=== PATIENT | female | born 1990 | race Hispanic/Latino ===

== ENCOUNTER 2023-05-03 06:37 | Emergency (ER) | payer OTHER ==
[2023-05-03] MEDS ORDERED: MAGNESIUM SULFATE 1 gm IVPB 1 GM/100 ML BAG IV ONE (07:22)
[2023-05-03] MEDS ORDERED: METOCLOPRAMIDE 10 MG/2mL INJ ONE (07:22)
[2023-05-03] MEDS ORDERED: ACETAMINOPHEN 500 MG TAB ONE (07:22)
[2023-05-03] MEDS ORDERED: NA CHLORIDE 0.9% 1,000 ML ONE (07:22)
[2023-05-03] MEDS ORDERED: DIPHENHYDRAMINE 50 MG/ML VIAL ONE (07:22)
[2023-05-03 07:35] LABS: SARS-CoV-2 Antigen Rapid Res Negative (Negative)
--- NOTE | 2023-05-03 08:10 | RAD REPORT ---
EXAM DESCRIPTION: CT - Head Brain Wo Cont - 05/03/2023 8:02 am CLINICAL HISTORY: HEADACHE Headache, drowsiness COMPARISON: No comparisons TECHNIQUE: All CT scans are performed using dose optimization technique as appropriate and may inclu de automated exposure control or mA/KV adjustment according to patient size. FINDINGS: No intracranial hemorrhage, hydrocephalus or extra-axial fluid collection.No areas of brai n edema or evidence of midline shift. The paranasal sinuses and mastoids are clear. The calvarium is intact. IMPRESSION: No acute intracranial abnormality.
[2023-05-03 08:30] LABS: Absolute Lymphocytes (CBC) 1.6 K/uL (0.7-4.9); Hematocrit 38.7 % (36.0-45.0); MCV 86.4 fL (80-100); MPV 9.8 fL (7.6-11.3); Platelets 251 thou/uL (152-406); RBC Red Blood Cell Count 4.48 M/uL (3.86-4.86)
[2023-05-03 08:44] LABS: Albumin 3.3 g/dL (3.4-5.0); Bilirubin Total 0.8 mg/dL (0.2-1.0); Potassium 3.7 mEq/L (3.5-5.1); Protein, Total 7.7 g/dL (6.4-8.2)
--- NOTE | 2023-05-03 09:22 | EDPHYS ---
Physician Documentation [facility] Name: Aliya Floyd Age: 32 yrs Sex: Female : 1990 Arrival Date: 05/03/2023 Time: 06:37 Bed 5 Private MD: ED Physician Abbe Spear HPI: 05/03 07:08 This 32 yrs old Female presents to ER via Ambulatory with complaints of Headache. rt 07:08 Patient presents to the ED with a headache for about a week. It is frontal in nature. rt Patient does report having a fever at home. States that she has had nausea no vomiting. She does report light sensitivity. She has had prior migraines in the past, states that these were similar but this 1 is lasting longer. Denies other acute complaints at this time, symptoms are moderate severity, aching nature, nonradiating, no other aggravating or alleviating factors.. 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 - Social history:: Smoking status: Patient denies any tobacco usage or history of. - Family history:: not pertinent. ROS: 07:08 Constitutional: Negative for fever, chills, and weight loss, Cardiovascular: Negative rt for chest pain, palpitations, and edema, Respiratory: Negative for shortness of breath, cough, wheezing, and pleuritic chest pain, MS/Extremity: Negative for injury and deformity, Skin: Negative for injury, rash, and discoloration, Psych: Negative for depression, anxiety, suicide ideation, homicidal ideation, and hallucinations. 07:08 Abdomen/GI: Positive for nausea, Negative for abdominal pain. 07:08 Neuro: Positive for headache, Negative for altered mental status. Exam: 07:08 Constitutional: This is a well developed, well nourished patient who is awake, alert, rt and in no acute distress. Head/Face: Normocephalic, atraumatic. Chest/axilla: Normal chest wall appearance and motion. Nontender with no deformity. No lesions are appreciated. Cardiovascular: Regular rate and rhythm with a normal S1 and S2. No gallops, murmurs, or rubs. Normal PMI, no JVD. No pulse deficits. Respiratory: Lungs have equal breath sounds bilaterally, clear to auscultation and percussion. No rales, rhonchi or wheezes noted. No increased work of breathing, no retractions or nasal flaring. Abdomen/GI: Soft, non-tender, with normal bowel sounds. No distension or tympany. No guarding or rebound. No evidence of tenderness throughout. Skin: Warm, dry with normal turgor. Normal color with no rashes, no lesions, and no evidence of cellulitis. MS/ Extremity: Pulses equal, no cyanosis. Neurovascular intact. Full, normal range of motion. Neuro: Awake and alert, GCS 15, oriented to person, place, time, and situation. Cranial nerves II-XII grossly intact. Motor strength 5/5 in all extremities. Sensory grossly intact. Cerebellar exam normal. Normal gait. Psych: Awake, alert, with orientation to person, place and time. Behavior, mood, and affect are within normal limits. Vital Signs: 06:57 BP 149 / 84; Pulse 68; Resp 18 S; Temp 100.4(O); Pulse Ox 96% on R/A; Weight 88.45 kg as6 (R); Height 5 ft. 4 in. (R); Pain 8/10; 09:00 BP 139 / 87; Pulse 71; Resp 16; Temp 99.1; Pulse Ox 100% on R/A; iw 06:57 Body Mass Index 33.47 (88.45 kg, 162.56 cm) as6 06:57 Pain Scale: Adult as6 MDM: 06:57 Patient medically screened. rt 09:39 Differential diagnosis: Migraine, viral syndrome, generalized headache, meningitis, rt encephalitis, intracranial hemorrhage. Data reviewed: vital signs, nurses notes. I considered the following discharge prescriptions or medication management in the emergency department Medications were administered in the Emergency Department. See MAR. Independent interpretation of the following test(s) in the Emergency Department CT Scan: My interpretation is No hemorrhage seen on interpretation of the CT scan images. Care significantly affected by the following chronic conditions: Hypertension. Counseling: I had a detailed discussion with the patient and/or guardian regarding the historical points, exam findings, and any diagnostic results supporting the discharge/admit diagnosis, lab results, radiology results, the need for outpatient follow up, Had a long discussion with the patient regarding possibility of meningitis given leukocytosis, description of symptoms. I informed the patient of the serious nature of meningitis, including the possibility of and disability. I offered the patient a lumbar puncture, after discussion of risks and benefits, she declines this as she is symptomatically much improved. She states that she wishes to go home. The patient was informed that she may return at any time if she has worsening of her condition or if she changes her mind regarding lumbar puncture.. Response to treatment: the patient's symptoms have markedly improved after treatment. 05/03 07:08 Order name: SARS RAPID; Complete Time: 07:35 rt 05/03 07:53 Order name: CBC with Diff; Complete Time: 08:49 rt 05/03 07:53 Order name: CMP; Complete Time: 08:49 rt 05/03 07:53 Order name: CT Head Brain wo Cont; Complete Time: 08:11 rt Administered Medications: 07:23 Drug: Acetaminophen PO 1000 mg Route: PO; [facility] 08:30 Follow up: Response: No adverse reaction iw 07:23 Drug: NS 0.9% IV 1000 ml Route: IV; Rate: 1 bolus; Site: right antecubital; 6 08:30 Follow up: IV Status: Completed infusion iw 07:23 Drug: metoCLOPramide IVP 10 mg Route: IVP; Site: right antecubital; 6 08:30 Follow up: Response: No adverse reaction iw 07:23 Drug: diphenhydrAMINE IVP 25 mg Route: IVP; Site: right antecubital; [facility] 08:30 Follow up: Response: No adverse reaction iw 07:23 Drug: Magnesium Sulfate IVPB 1 grams Route: IVPB; Infused Over: 2 hrs; Site: right kc6 antecubital; 08:30 Follow up: IV Status: Completed infusion iw Disposition Summary: 05/03/23 09:22 Discharge Ordered Location: Home rt Problem: new rt Symptoms: have improved rt Condition: Stable rt Diagnosis - Headache rt Followup: rt - With: Private Physician - When: 2 - 3 days - Reason: Followup: rt - With: Emergency Department - When: As needed - Reason: Further diagnostic work-up Discharge Instructions: - Discharge Summary Sheet rt - General Headache Without Cause rt - Bacterial Meningitis, Adult rt - Viral Meningitis, Adult rt Forms: - Work release form iw - Medication Reconciliation Form rt - Thank You Letter rt - Antibiotic Education rt - Prescription Opioid Use rt - Patient Portal Instructions rt - Leadership Thank You Letter rt Prescriptions: - Reglan 10 mg Oral Tablet - take 1 tablet by ORAL route every 6 hours As needed for headache; 15 tablet; rt Refills: 0, Product Selection Permitted Signatures: Dispatcher [employer] Toi Ortega RN RN as6 Lizeth Cueto RN RN kc6 Abbe Spear MD MD rt Williams, Irene RN iw
--- NOTE | 2023-05-03 09:22 | ER ---
Nurse's Notes [facility] Name: Aliya Floyd Age: 32 yrs Sex: Female : 1990 Arrival Date: 05/03/2023 Time: 06:37 Bed 5 Private MD: Diagnosis: Headache Presentation: 05/03 06:57 Chief complaint: Patient states: headache that started Sunday, pt was seen in Urgent as6 care on Sunday and was given pain medication with little to no relief. pt just left [place] and was told they couldn't do all the testing she might need. Coronavirus screen: At this time, the client does not indicate any symptoms associated with coronavirus-19. Ebola Screen: No symptoms or risks identified at this time. Initial Sepsis Screen: Does the patient meet any 2 criteria? No. Patient's initial sepsis screen is negative. Does the patient have a suspected source of infection? No. Patient's initial sepsis screen is negative. Risk Assessment: Do you want to hurt yourself or someone else? Patient reports no desire to harm self or others. Onset of symptoms was April 30, 2023. 06:57 Method Of Arrival: Ambulatory as6 06:57 Acuity: GERSON 3 as6 Triage Assessment: 07:02 General: Appears uncomfortable, Behavior is calm, cooperative. Pain: Complains of pain as6 in head Quality of pain is described as aching. Neuro: Reports headache. GI: Reports nausea. 07:30 Headache History: The patient has had previous headaches and this one is more severe iw than previous episodes. Pain: Pain Also complains of photophobia. 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 - Social history:: Smoking status: Patient denies any tobacco usage or history of. - Family history:: not pertinent. Screenin:43 [facility] ED Fall Risk Assessment (Adult) Score/Fall Risk Level 0 - 2 = Low Risk. Abuse iw screen: Denies threats or abuse. Denies injuries from another. Nutritional screening: No deficits noted. Tuberculosis screening: No symptoms or risk factors identified. Assessment: 07:42 General: Appears in no apparent distress. Behavior is calm, cooperative. Pain: iw Complains of pain in head. Neuro: Level of Consciousness is awake, alert, obeys commands, Oriented to person, place, time, situation, Moves all extremities. Full function Reports headache. Cardiovascular: Patient's skin is warm and dry. Respiratory: Respiratory effort is even, unlabored, Respiratory pattern is regular, symmetrical. Derm: Skin is intact, is healthy with good turgor. Musculoskeletal: Range of motion: intact in all extremities. 09:00 Reassessment: Patient appears in no apparent distress at this time. Patient and/or iw family updated on plan of care and expected duration. Pain level reassessed. Patient is alert, oriented x 3, equal unlabored respirations, skin warm/dry/pink. Vital Signs: 06:57 BP 149 / 84; Pulse 68; Resp 18 S; Temp 100.4(O); Pulse Ox 96% on R/A; Weight 88.45 kg as6 (R); Height 5 ft. 4 in. (R); Pain 8/10; 09:00 BP 139 / 87; Pulse 71; Resp 16; Temp 99.1; Pulse Ox 100% on R/A; iw 06:57 Body Mass Index 33.47 (88.45 kg, 162.56 cm) as6 06:57 Pain Scale: Adult as6 ED Course: 06:48 Patient arrived in ED. ag3 06:57 Abbe Spear MD is Attending Physician. rt 07:00 Lucrecia Harmon, RN is Primary Nurse. iw 07:01 Triage completed. as6 07:04 Arm band placed on. as6 07:16 Inserted saline lock: 22 gauge in right antecubital area, using aseptic technique. iw 07:16 SARS RAPID Sent. iw 07:43 Patient has correct armband on for positive identification. iw 08:04 CT Head Brain wo Cont In Process Unspecified. EDMS 08:20 CBC with Diff Sent. iw 08:20 CMP Sent. iw 09:30 Provided Education on: Lumbar Puncture, after speaking it over with mother, pt decided iw she does not consent to LP, verbalizes understanding of risks involved with forgoing procedure . 09:54 No provider procedures requiring assistance completed. IV discontinued, intact, iw bleeding controlled, No redness/swelling at site. Pressure dressing applied. Administered Medications: 07:23 Drug: Acetaminophen PO 1000 mg Route: PO; kc6 08:30 Follow up: Response: No adverse reaction iw 07: Drug: NS 0.9% IV 1000 ml Route: IV; Rate: 1 bolus; Site: right antecubital; kc6 08:30 Follow up: IV Status: Completed infusion iw 07: Drug: metoCLOPramide IVP 10 mg Route: IVP; Site: right antecubital; kc6 08:30 Follow up: Response: No adverse reaction iw 07: Drug: diphenhydrAMINE IVP 25 mg Route: IVP; Site: right antecubital; kc6 08:30 Follow up: Response: No adverse reaction iw 07: Drug: Magnesium Sulfate IVPB 1 grams Route: IVPB; Infused Over: 2 hrs; Site: right kc6 antecubital; 08:30 Follow up: IV Status: Completed infusion iw Medication: 07:45 VIS not applicable for this client. iw Outcome: 09:22 Discharge ordered by . rt 09:55 Discharged to home ambulatory, with family. iw 09:55 Condition: good 09:55 Discharge instructions given to patient, family, Instructed on discharge instructions, follow up and referral plans. medication usage, Demonstrated understanding of instructions, follow-up care, medications, Prescriptions given X 1. 09:56 Patient left the ED. iw Signatures: Dispatcher [employer] Lucrecia Hernandez RN RN iw Gomez, Alice ag3 Toi Moore RN RN as6 Lizeth Cueto RN RN kc6 Abbe Spear MD MD rt
[2023-05-03 10:11] VITALS: BP 149/84; TEMP 100.4; O2SAT 96
== END 2023-05-03 09:56 | disposition home or self-care (01) ==
LOC: ER 06:37
DX: R51.9 Headache, unspecified (principal); R11.0 Nausea; I10 Essential (primary) hypertension; Z20.822 Contact with and (suspected) exposure to COVID-19
CPT/HCPCS: 96365; 85025; 36415; 80053; 70450; 96375; 99284; 87811; J3475; J2765; J1200; J7030

== ENCOUNTER 2023-05-04 14:15 | Inpatient (IN) | payer OTHER ==
--- OUTSIDE RECORDS SUMMARY | 2023-05-04 14:19 | XMS REPORT | Continuity of Care Document ---
:1990 Author Organization [facility] t Address [address] [place] [address] Care Team Providers Name Role Phone Felice Pardo MD Primary Care Physician Keaton_R_LAN_DO Attending Clinician Unavailable ZACH CLEMENTS Attending Clinician Unavailable WILLIE HO Attending Clinician Unavailable ALFREDO PORTILLO Attending Clinician Unavailable CRISELDA DIAMOND Attending Clinician Unavailable Keaton_Petr_LAN_ Admitting Clinician Unavailable Payers Payer Name Policy Type Policy Number Effective Date Expiration Date [place] [facility] P [id number] [facility] [id number] [facility] CHOICE PLUS [id number] 2021 00:00:00 COMMERCIAL GENERIC [id number] 2021 OON 00:00:00 Problems This patient has no known problems. Allergies, Adverse Reactions, Alerts Allergy Allergy Status Severity Reaction(s) Onset Inactive Treating Comm ents Source Name Type Date Date Clinician NO KNOWN Allergy Active [facility] Mold Allergy Active Itching, [place] to Respiratory Famil y substanc distress Practi c e e CAT Allergy Active Itching [place] DANDER to Family substanc Practic e e Dog Allergy Active Itching [place] Dander to Family substanc Practic e e House Allergy Active Itching, [place] Dust to Respiratory Famil y substanc distress Practi c e e Family History Family Member Diagnosis Comments Start Date Stop Date Source Natural father Heart disease [facility] Natural father Hypertension [facility] Natural mother Cancer [facility] Natural mother Arthritis [facility] Natural brother Asthma [facility] Natural sister Asthma [facility] Natural sister Hyperlipidemia [facility] Natural sister Hypertension [facility] Social History Social Habit Start Date Stop Date Quantity Comments Source Gender identity Neil Guzman alth Sexual orientation [facility] Alcohol intake 2022-12-09 2022-12-[address] [facility] (finding) History of Social 2022-01-23 2022-01-[address] function 00:00:00 00:00:00 Hospital Alcohol Comment 2021-10-24 2021-10-24 rarely [facility] 00:[facility]:00 00:00:00 Hospital Tobacco use and 2021-10-24 2021-10-24 Smokeless [facility] exposure 00:00:00 00:00:00 tobacco non-user Hospital Sex Assigned At [address] [facility] 00:00:00 [facility]:00:00 [facility] Center Smoking Status Start Date Stop Date Source Never Smoker [place] [facility] P vic Medications Ordered Filled Start Stop Current Ordering Indication Dosage Frequency Signature Comments Components Source Medication Medication Date Date Medication? Clinician (SIG) Name Name vilazodone Yes 40mg QD Take 40 mg M ethodi (Viibryd) 5-[address] 40 mg 13:35: daily. [facility]ospita tablet 43 l NIFEdipine Yes 30mg QD Take 30 mg M ethodi ER 5-[address] (PROCARDIA- 13:35: daily. Hosp eduardo XL) 30 MG 43 l 24 hr tablet budesonide- Yes 2{puff} Q.5D Inhale 2 [facility] formoteroL 5-[address] (SYMBICORT) 13:35: (two) Hospi ta 160-4.5 43 times a l mcg/actuati day. on inhaler topiramate Yes 25mg QD Take 1 Metho di (TOPAMAX) 5-[address] 25 MG 00:00: (25 mg Hospita capsule 00 total) by l mouth nightly. clindamycin Yes Folliculiti Apply to Neil (CLEOCIN-T) 11-08 s affected Heal th 1 % lotion 00:00: areas with 00 inflamed hair follicles in the armpits twice daily until clear. ketoconazol Yes Seborrheic Lather Neil daily (NIZORAL) 11-08 dermatitis onto He alth 2 % shampoo 00:00: scalp, let 00 sit for 5-10 mins, then rinse. Repeat 2-3 times a week. multivitami Yes 1{tbl} QD Take [address] [facility] per 3-25 tablet by [facility] tablet 09:33: [facility] 12 daily. [place] multivitami Yes 1{tbl} QD Take [address] [facility] per 3-25 tablet by [facility] tablet 09:33: mouth [facility] 12 daily. [place] OneTouch OneTouch No OneTouch Clay moustapha Verio test Verio test Verio test Family strips USE strips USE strips USE Practic DIRECTED DIRECTED e ONCE DAILY ONCE DAILY DIRECTED IN THE IN THE ONCE DAILY MORNING MORNING IN THE MORNING propranolol propranolol No propranolo [place] 10 mg 10 mg l 10 mg Family tablet TAKE tablet TAKE tablet Practic 1 TABLET BY 1 TABLET BY TAKE 1 e MOUTH TWICE MOUTH TWICE TABLET BY DAILY DAILY MOUTH NEEDED NEEDED TWICE DAILY NEEDED Symbicort Symbicort No Symbicort [place] 160 mcg-4.5 160 mcg-4.5 160 F amily mcg/actuati mcg/actuati mcg-4.5 Practic on HFA on HFA mcg/actuat e aerosol aerosol ion HFA inhaler inhaler aerosol INHALE 2 INHALE 2 inhaler PUFFS BY PUFFS BY INHALE 2 MOUTH TWICE MOUTH TWICE PUFFS BY DAILY WITH DAILY WITH MOUTH MEALS FOR 3 MEALS FOR 3 TWICE DAYS DAYS DAILY WITH MEALS FOR 3 DAYS albuterol albuterol No albuterol [place] sulfate HFA sulfate HFA sulfate Family 90 90 HFA 90 Practic mcg/actuati mcg/actuati mcg/actuat e on aerosol on aerosol ion inhaler inhaler aerosol INHALE 2 INHALE 2 inhaler PUFFS BY PUFFS BY INHALE 2 MOUTH EVERY MOUTH EVERY PUFFS BY 6 HOURS 6 HOURS MOUTH NEEDED NEEDED EVERY 6 HOURS NEEDED amlodipine amlodipine No amlodipine [place] 10 10 10 Family mg-benazepr mg-benazepr mg-benazep Practic il 20 mg il 20 mg ril 20 mg e capsule capsule capsule TAKE 1 TAKE 1 TAKE 1 CAPSULE BY CAPSULE BY CAPSULE BY MOUTH EVERY MOUTH EVERY MOUTH DAY IN THE DAY IN THE EVERY DAY MORNING MORNING IN THE MORNING amoxicillin amoxicillin No 1 Q12H amoxicilli [facility] [phone] Family mg-potassiu mg-potassiu mg-potassi Practic m m um e clavulanate clavulanate clavulanat 125 mg 125 mg e 125 mg tablet Take tablet Take tablet 1 tablet 1 tablet Take 1 every 12 every 12 tablet hours by hours by every 12 oral route oral route hours by with meals with meals oral route for 7 days. for 7 days. with meals for 7 days. montelukast montelukast [facility] 10 mg 10 mg t 10 mg Family tablet TAKE tablet TAKE tablet Practic 1 TABLET BY 1 TABLET BY TAKE 1 e MOUTH EVERY MOUTH EVERY TABLET BY DAY AT DAY AT MOUTH BEDTIME BEDTIME EVERY DAY AT BEDTIME OneTouch OneTouch No OneTouch Clay moustapha Delica Plus Delica Plus Delica Family Lancet 33 Lancet 33 Plus Pract ic gauge USE gauge USE Lancet 33 e DIRECTED DIRECTED gauge USE TO CHECK TO CHECK BLOOD BLOOD DIRECTED SUGARS ONCE SUGARS ONCE TO CHECK DAILY DAILY BLOOD SUGARS ONCE DAILY OneTouch OneTouch No OneTouch Clay moustapha Verio Verio Verio Family Reflect Reflect Reflect Practi c Meter Meter Meter e DIRECTED TO DIRECTED TO DIRECTED CHECK BLOOD CHECK BLOOD TO CHECK SUGARS SUGARS BLOOD DAILY DAILY SUGARS DAILY OneTouch OneTouch No OneTouch Clay moustapha Verio test Verio test Verio test Family strips USE strips USE strips USE Practic DIRECTED DIRECTED e ONCE DAILY ONCE DAILY DIRECTED IN THE IN THE ONCE DAILY MORNING MORNING IN THE MORNING propranolol propranolol No propranolo [facility] 10 mg 10 mg l 10 mg Family tablet TAKE tablet TAKE tablet Practic 1 TABLET BY 1 TABLET BY TAKE 1 e MOUTH TWICE MOUTH TWICE TABLET BY DAILY DAILY MOUTH NEEDED NEEDED TWICE DAILY NEEDED rosuvastati rosuvastati No 1 Q1D rosuvastat [facility] n 20 mg n 20 mg in 20 mg Famil y tablet Take tablet Take tablet Practic 1 tablet 1 tablet Take 1 e every day every day tablet by oral by oral every day route at route at by oral bedtime for bedtime for route at 30 days. 30 days. bedtime for 30 days. Symbicort Symbicort No Symbicort [facility] 160 mcg-4.5 160 mcg-4.5 160 F amily mcg/actuati mcg/actuati mcg-4.5 Practic on HFA on HFA mcg/actuat e aerosol aerosol ion HFA inhaler inhaler aerosol INHALE 2 INHALE 2 inhaler PUFFS BY PUFFS BY INHALE 2 MOUTH TWICE MOUTH TWICE PUFFS BY DAILY WITH DAILY WITH MOUTH MEALS FOR 3 MEALS FOR 3 TWICE DAYS DAYS DAILY WITH MEALS FOR 3 DAYS albuterol albuterol No albuterol [place] sulfate HFA sulfate HFA sulfate Family 90 90 HFA 90 Practic mcg/actuati mcg/actuati mcg/actuat e on aerosol on aerosol ion inhaler inhaler aerosol INHALE 2 INHALE 2 inhaler PUFFS BY PUFFS BY INHALE 2 MOUTH EVERY MOUTH EVERY PUFFS BY 6 HOURS 6 HOURS MOUTH NEEDED NEEDED EVERY 6 HOURS NEEDED amlodipine amlodipine No amlodipine [facility] 10 10 10 Family mg-benazepr mg-benazepr mg-benazep Practic il 20 mg il 20 mg ril 20 mg e capsule capsule capsule TAKE 1 TAKE 1 TAKE 1 CAPSULE BY CAPSULE BY CAPSULE BY MOUTH EVERY MOUTH EVERY MOUTH DAY IN THE DAY IN THE EVERY DAY MORNING MORNING IN THE MORNING amoxicillin amoxicillin No 1 Q12H amoxicilli [facility] [phone] n 875 Family mg-potassiu mg-potassiu mg-potassi Practic m m um e clavulanate clavulanate clavulanat 125 mg 125 mg e 125 mg tablet Take tablet Take tablet 1 tablet 1 tablet Take 1 every 12 every 12 tablet hours by hours by every 12 oral route oral route hours by with meals with meals oral route for 7 days. for 7 days. with meals for 7 days. montelukast montelukast [facility] 10 mg 10 mg t 10 mg Family tablet TAKE tablet TAKE tablet Practic 1 TABLET BY 1 TABLET BY TAKE 1 e MOUTH EVERY MOUTH EVERY TABLET BY DAY AT DAY AT MOUTH BEDTIME BEDTIME EVERY DAY AT BEDTIME OneTouch OneTouch No OneTouch Clay moustapha Delica Plus Delica Plus [facility] Family Lancet 33 Lancet 33 Plus Pract ic gauge USE gauge USE Lancet 33 e DIRECTED DIRECTED gauge USE TO CHECK TO CHECK BLOOD BLOOD DIRECTED SUGARS ONCE SUGARS ONCE TO CHECK DAILY DAILY BLOOD SUGARS ONCE DAILY OneTouch OneTouch No OneTouch Clay moustapha Verio Verio Verio Family Reflect Reflect Reflect Practi c Meter Meter Meter e DIRECTED TO DIRECTED TO DIRECTED CHECK BLOOD CHECK BLOOD TO CHECK SUGARS SUGARS BLOOD DAILY DAILY SUGARS DAILY OneTouch OneTouch No OneTouch Clay moustapha Verio test Verio test Verio test Family strips USE strips USE strips USE Practic DIRECTED DIRECTED e ONCE DAILY ONCE DAILY DIRECTED IN THE IN THE ONCE DAILY MORNING MORNING IN THE MORNING propranolol propranolol No propranolo [place] 10 mg 10 mg l 10 mg Family tablet TAKE tablet TAKE tablet Practic 1 TABLET BY 1 TABLET BY TAKE 1 e MOUTH TWICE MOUTH TWICE TABLET BY DAILY DAILY MOUTH NEEDED NEEDED TWICE DAILY NEEDED rosuvastati rosuvastati No 1 Q1D rosuvastat [facility] n 20 mg n 20 mg in 20 mg Famil y tablet Take tablet Take tablet Practic 1 tablet 1 tablet Take 1 e every day every day tablet by oral by oral every day route at route at by oral bedtime for bedtime for route at 30 days. 30 days. bedtime for 30 days. Symbicort Symbicort No Symbicort [place] 160 mcg-4.5 160 mcg-4.5 160 F amily mcg/actuati mcg/actuati mcg-4.5 Practic on HFA on HFA mcg/actuat e aerosol aerosol ion HFA inhaler inhaler aerosol INHALE 2 INHALE 2 inhaler PUFFS BY PUFFS BY INHALE 2 MOUTH TWICE MOUTH TWICE PUFFS BY DAILY WITH DAILY WITH MOUTH MEALS FOR 3 MEALS FOR 3 TWICE DAYS DAYS DAILY WITH MEALS FOR 3 DAYS albuterol albuterol No 2puff(s Q6H albuterol [place] sulfate HFA sulfate HFA ) sulfate Family 90 90 HFA 90 Practic mcg/actuati mcg/actuati mcg/actuat e on aerosol on aerosol ion inhaler inhaler aerosol Inhale 2 Inhale 2 inhaler puffs every puffs every Inhale 2 6 hours by 6 hours by puffs inhalation inhalation every 6 route as route as hours by needed for needed for inhalation 30 days. 30 days. route as needed for 30 days. Lotrel 10 Lotrel 10 No 1capsul Q1D Lotrel 10 [place] mg-20 mg mg-20 mg e(s) mg-20 mg Fam hernan capsule capsule capsule Practi c Take 1 Take 1 Take 1 e capsule capsule capsule every day every day every day by oral by oral by oral route in route in route in the morning the morning the for 30 for 30 morning days. days. for 30 days. montelukast montelukast No 1 Q1D [place] [facility] 10 mg 10 mg t 10 mg Family tablet Take tablet Take tablet Practic 1 tablet 1 tablet Take 1 e every day every day tablet by oral by oral every day route at route at by oral bedtime for bedtime for route at 30 days. 30 days. bedtime for 30 days. propranolol propranolol No 1 BID propranolo [facility] 10 mg 10 mg l 10 mg Family tablet Take tablet Take tablet Practic 1 tablet 1 tablet Take 1 e twice a day twice a day tablet by oral by oral twice a route as route as day by needed for needed for oral route 30 days. 30 days. as needed for 30 days. Symbicort Symbicort No 2puff(s BID Symbicort [facility] 160 mcg-4.5 160 mcg-4.5 ) 160 F amily mcg/actuati mcg/actuati mcg-4.5 Practic on HFA on HFA mcg/actuat e aerosol aerosol ion HFA inhaler inhaler aerosol Inhale 2 Inhale 2 inhaler puffs twice puffs twice Inhale 2 a day by a day by puffs inhalation inhalation twice a route with route with day by meals for 3 meals for 3 inhalation days. days. route with meals for 3 days. albuterol albuterol No albuterol [facility] sulfate HFA sulfate HFA sulfate Family 90 90 HFA 90 Practic mcg/actuati mcg/actuati mcg/actuat e on aerosol on aerosol ion inhaler inhaler aerosol INHALE 2 INHALE 2 inhaler PUFFS BY PUFFS BY INHALE 2 MOUTH EVERY MOUTH EVERY PUFFS BY 6 HOURS 6 HOURS MOUTH NEEDED NEEDED EVERY 6 HOURS NEEDED amlodipine amlodipine No amlodipine [facility] 10 10 10 Family mg-benazepr mg-benazepr mg-benazep Practic il 20 mg il 20 mg ril 20 mg e capsule capsule capsule TAKE 1 TAKE 1 TAKE 1 CAPSULE BY CAPSULE BY CAPSULE BY MOUTH EVERY MOUTH EVERY MOUTH DAY IN THE DAY IN THE EVERY DAY MORNING MORNING IN THE MORNING montelukast montelukast No karissa [facility] 10 mg 10 mg t 10 mg Family tablet TAKE tablet TAKE tablet Practic 1 TABLET BY 1 TABLET BY TAKE 1 e MOUTH EVERY MOUTH EVERY TABLET BY DAY AT DAY AT MOUTH BEDTIME BEDTIME EVERY DAY AT BEDTIME OneTouch OneTouch No 1strip( Q1D OneTouch [facility] Verio test Verio test s) Verio test Family strips Take strips Take strips Practic 1 strip 1 strip Take 1 e every day every day strip by miscell. by miscell. every day route in route in by the morning the morning miscell. for 90 for 90 route in days. days. the morning for 90 days. [facility] l 10 mg Family tablet TAKE tablet TAKE tablet Practic 1 TABLET BY 1 TABLET BY TAKE 1 e MOUTH TWICE MOUTH TWICE TABLET BY DAILY DAILY MOUTH NEEDED NEEDED TWICE DAILY NEEDED Symbicort Symbicort No Symbicort [facility] 160 mcg-4.5 160 mcg-4.5 160 F amily mcg/actuati mcg/actuati mcg-4.5 Practic on HFA on HFA mcg/actuat e aerosol aerosol ion HFA inhaler inhaler aerosol INHALE 2 INHALE 2 inhaler PUFFS BY PUFFS BY INHALE 2 MOUTH TWICE MOUTH TWICE PUFFS BY DAILY WITH DAILY WITH MOUTH MEALS FOR 3 MEALS FOR 3 TWICE DAYS DAYS DAILY WITH MEALS FOR 3 DAYS albuterol albuterol No albuterol [facility] sulfate HFA sulfate HFA sulfate Family 90 90 HFA 90 Practic mcg/actuati mcg/actuati mcg/actuat e on aerosol on aerosol ion inhaler inhaler aerosol INHALE 2 INHALE 2 inhaler PUFFS BY PUFFS BY INHALE 2 MOUTH EVERY MOUTH EVERY PUFFS BY 6 HOURS 6 HOURS MOUTH NEEDED NEEDED EVERY 6 HOURS NEEDED amlodipine amlodipine No amlodipine [facility] 10 10 10 Family mg-benazepr mg-benazepr mg-benazep Practic il 20 mg il 20 mg ril 20 mg e capsule capsule capsule TAKE 1 TAKE 1 TAKE 1 CAPSULE BY CAPSULE BY CAPSULE BY MOUTH EVERY MOUTH EVERY MOUTH DAY IN THE DAY IN THE EVERY DAY MORNING MORNING IN THE MORNING montelukast montelukast No [facility] 10 mg 10 mg t 10 mg Family tablet TAKE tablet TAKE tablet Practic 1 TABLET BY 1 TABLET BY TAKE 1 e MOUTH EVERY MOUTH EVERY TABLET BY DAY AT DAY AT MOUTH BEDTIME BEDTIME EVERY DAY AT BEDTIME OneTouch OneTouch No OneTouch Clay moustapha Delica Plus Delica Plus Delica Family Lancet 33 Lancet 33 Plus Pract ic gauge USE gauge USE Lancet 33 e DIRECTED DIRECTED gauge USE TO CHECK TO CHECK BLOOD BLOOD DIRECTED SUGARS ONCE SUGARS ONCE TO CHECK DAILY DAILY BLOOD SUGARS ONCE DAILY OneTouch OneTouch No OneTouch Clay moustapha Verio Verio Verio Family Reflect Reflect Reflect Practi c Meter Meter Meter e DIRECTED TO DIRECTED TO DIRECTED CHECK BLOOD CHECK BLOOD TO CHECK SUGARS SUGARS BLOOD DAILY DAILY SUGARS DAILY Immunizations Ordered Immunization Filled Immunization Date Status Commen ts Source Name Name SARS-COV-2 2021-07-21 Completed [facility] (COVID-19) Vaccine, 00:00:00 Hospi migdalia Unspecified COVID-19, mRNA, COVID-19, mRNA, 2021-07-14 Completed Vill age Family LNP-S, PF, 100 LNP-S, PF, 100 00:00:00 Practi ce mcg/0.5 mL dose mcg/0.5 mL dose (Moderna) (Moderna) influenza, influenza, 2021-07-14 Completed [facility] Family unspecified unspecified 00:00:00 Practice formulation formulation COVID-19, mRNA, COVID-19, mRNA, 2021-07-14 Completed [facility] age Family LNP-S, PF, 100 LNP-S, PF, 100 00:00:00 Practi ce mcg/0.5 mL dose mcg/0.5 mL dose (Moderna) (Moderna) influenza, influenza, 2021-07-14 Completed [facility] unspecified unspecified 00:00:00 Practice formulation formulation COVID-19, mRNA, COVID-19, mRNA, 2021-07-14 Completed [facility] age Family LNP-S, PF, 100 LNP-S, PF, 100 00:00:00 Practi ce mcg/0.5 mL dose mcg/0.5 mL dose (Moderna) (Moderna) influenza, influenza, 2021-07-14 Completed [facility] unspecified unspecified 00:00:00 Practice formulation formulation COVID-19, mRNA, COVID-19, mRNA, 2021-07-14 Completed [facility] age Family LNP-S, PF, 100 LNP-S, PF, 100 00:00:00 Practi ce mcg/0.5 mL dose mcg/0.5 mL dose (Moderna) (Moderna) influenza, influenza, 2021-07-14 Completed [facility] unspecified unspecified 00:00:00 Practice formulation formulation COVID-19, mRNA, COVID-19, mRNA, 2021-07-14 Completed [facility] Family LNP-S, PF, 100 LNP-S, PF, 100 00:00:00 Practi ce mcg/0.5 mL dose mcg/0.5 mL dose (Moderna) (Moderna) influenza, influenza, 2021-07-14 Completed [facility] unspecified unspecified 00:00:00 Practice formulation formulation COVID-19, mRNA, COVID-19, mRNA, 2021-01-16 Completed [facility] Family LNP-S, PF, 100 LNP-S, PF, 100 00:00:00 Practi ce mcg/0.5 mL dose mcg/0.5 mL dose (Moderna) (Moderna) COVID-19, mRNA, COVID-19, mRNA, 2021-01-16 Completed [facility] Family LNP-S, PF, 100 LNP-S, PF, 100 00:00:00 Practi ce mcg/0.5 mL dose mcg/0.5 mL dose (Moderna) (Moderna) COVID-19, mRNA, COVID-19, mRNA, 2021-01-16 Completed [facility] Family LNP-S, PF, 100 LNP-S, PF, 100 00:00:00 Practi ce mcg/0.5 mL dose mcg/0.5 mL dose (Moderna) (Moderna) COVID-19, mRNA, COVID-19, mRNA, 2021-01-16 Completed [facility] Family LNP-S, PF, 100 LNP-S, PF, 100 00:00:00 Practi ce mcg/0.5 mL dose mcg/0.5 mL dose (Moderna) (Moderna) COVID-19, mRNA, COVID-19, mRNA, 2021-01-16 Completed [facility] Family LNP-S, PF, 100 LNP-S, PF, 100 00:00:00 Practi ce mcg/0.5 mL dose mcg/0.5 mL dose (Moderna) (Moderna) SARS-COV-2 2021-01-15 Completed [facility] (COVID-19) Vaccine, 00:00:00 Hospi migdalia Unspecified SARS-COV-2 2020-12-18 Completed [facility] (COVID-19) Vaccine, 00:00:00 Hospi migdalia Unspecified COVID-19, mRNA, COVID-19, mRNA, 2020-11-12 Completed [facility] Family LNP-S, PF, 100 LNP-S, PF, 100 00:00:00 Practi ce mcg/0.5 mL dose mcg/0.5 mL dose (Moderna) (Moderna) COVID-19, mRNA, COVID-19, mRNA, 2020-11-12 Completed [facility] LNP-S, PF, 100 LNP-S, PF, 100 00:00:00 Practi ce mcg/0.5 mL dose mcg/0.5 mL dose (Moderna) (Moderna) COVID-19, mRNA, COVID-19, mRNA, 2020-11-12 Completed [facility] LNP-S, PF, 100 LNP-S, PF, 100 00:00:00 Practi ce mcg/0.5 mL dose mcg/0.5 mL dose (Moderna) (Moderna) COVID-19, mRNA, COVID-19, mRNA, 2020-11-12 Completed [facility] LNP-S, PF, 100 LNP-S, PF, 100 00:00:00 Practi ce mcg/0.5 mL dose mcg/0.5 mL dose (Moderna) (Moderna) COVID-19, mRNA, COVID-19, mRNA, 2020-11-12 Completed [facility] LNP-S, PF, 100 LNP-S, PF, 100 00:00:00 Practi ce mcg/0.5 mL dose mcg/0.5 mL dose (Moderna) (Moderna) Hep B, unspecified Hep B, unspecified 2003-04-13 Completed [facility] formulation formulation 00:00:00 Practice Hep B, unspecified Hep B, unspecified 2003-04-13 Completed [facility] formulation formulation 00:00:00 Practice Hep B, unspecified Hep B, unspecified 2003-04-13 Completed [facility] formulation formulation 00:00:00 Practice Hep B, unspecified Hep B, unspecified 2003-04-13 Completed [facility] formulation formulation 00:00:00 Practice Hep B, unspecified Hep B, unspecified 2003-04-13 Completed [facility] formulation formulation 00:00:00 Practice Hep B, unspecified Hep B, unspecified 2002-12-02 Completed [facility] formulation formulation 00:00:00 Practice Hep B, unspecified Hep B, unspecified 2002-12-02 Completed [facility] Family formulation formulation 00:00:00 Practice Hep B, unspecified Hep B, unspecified 2002-12-02 Completed [facility] Family formulation formulation 00:00:00 Practice Hep B, unspecified Hep B, unspecified 2002-12-02 Completed [facility] Family formulation formulation 00:00:00 Practice Hep B, unspecified Hep B, unspecified 2002-12-02 Completed [facility] Family formulation formulation 00:00:00 Practice measles measles 1996-01-29 Completed [facility] 00:00:00 Practice measles measles 1996-01-29 Completed [facility] 00:00:00 Practice measles measles 1996-01-29 Completed [facility] Family 00:00:00 Practice measles measles 1996-01-29 Completed [facility] 00:00:00 Practice measles measles 1996-01-29 Completed [facility] Family 00:00:00 Practice tetanus toxoid, tetanus toxoid, 1993-10-07 Completed [facility] unspecified unspecified 00:00:00 Practice formulation formulation tetanus toxoid, tetanus toxoid, 1993-10-07 Completed [facility] unspecified unspecified 00:00:00 Practice formulation formulation tetanus toxoid, tetanus toxoid, 1993-10-07 Completed [facility] unspecified unspecified 00:00:00 Practice formulation formulation tetanus toxoid, tetanus toxoid, 1993-10-07 Completed [facility] unspecified unspecified 00:00:00 Practice formulation formulation tetanus toxoid, tetanus toxoid, 1993-10-07 Completed [facility] unspecified unspecified 00:00:00 Practice formulation formulation measles measles 1993-03-11 Completed [facility] 00:00:00 Practice measles measles 1993-03-11 Completed [facility] 00:00:00 Practice measles measles 1993-03-11 Completed [facility] 00:00:00 Practice measles measles 1993-03-11 Completed [facility] 00:00:00 Practice measles measles 1993-03-11 Completed [facility] 00:00:00 Practice tetanus toxoid, tetanus toxoid, 1992-04-28 Completed [facility] unspecified unspecified 00:00:00 Practice formulation formulation tetanus toxoid, tetanus toxoid, 1992-04-28 Completed [facility] unspecified unspecified 00:00:00 Practice formulation formulation tetanus toxoid, tetanus toxoid, 1992-04-28 Completed [facility] unspecified unspecified 00:00:00 Practice formulation formulation tetanus toxoid, tetanus toxoid, 1992-04-28 Completed [facility] unspecified unspecified 00:00:00 Practice formulation formulation tetanus toxoid, tetanus toxoid, 1992-04-28 Completed [facility] unspecified unspecified 00:00:00 Practice formulation formulation tetanus toxoid, tetanus toxoid, 1992-01-27 Completed [facility] unspecified unspecified 00:00:00 Practice formulation formulation tetanus toxoid, tetanus toxoid, 1992-01-27 Completed [facility] unspecified unspecified 00:00:00 Practice formulation formulation tetanus toxoid, tetanus toxoid, 1992-01-27 Completed [facility] unspecified unspecified 00:00:00 Practice formulation formulation tetanus toxoid, tetanus toxoid, 1992-01-27 Completed [facility] unspecified unspecified 00:00:00 Practice formulation formulation tetanus toxoid, tetanus toxoid, 1992-01-27 Completed [facility] unspecified unspecified 00:00:00 Practice formulation formulation tetanus toxoid, tetanus toxoid, 1991 Completed [facility] unspecified unspecified 00:00:00 Practice formulation formulation tetanus toxoid, tetanus toxoid, 1991 Completed [facility] unspecified unspecified 00:00:00 Practice formulation formulation tetanus toxoid, tetanus toxoid, 1991 Completed [facility] unspecified unspecified 00:00:00 Practice formulation formulation tetanus toxoid, tetanus toxoid, 1991 Completed [facility] unspecified unspecified 00:00:00 Practice formulation formulation tetanus toxoid, tetanus toxoid, 1990 Completed [facility] unspecified unspecified 00:00:00 Practice formulation formulation Vital Signs Vital Name Observation Time Observation Value Comments Source BP Diastolic 2022-12-26 00:00:00 109 mm[Hg] [facility] Height 2022-12-26 00:00:00 64 [in_i] [facility] BMI (Body Mass 2022-12-26 00:00:00 34.7 kg/m2 [facility] Index) Practice BP Systolic 2022-12-26 00:00:00 148 mm[Hg] [facility] Body Weight 2022-12-26 00:00:00 202 [lb_av] [facility] BP Diastolic 2022-11-28 00:00:00 84 mm[Hg] [facility] Height 2022-11-28 00:00:00 64 [in_i] [facility] BMI (Body Mass 2022-11-28 00:00:00 34.2 kg/m2 [facility] BP Systolic 2022-11-28 00:00:00 121 mm[Hg] [facility] Body Weight 2022-11-28 00:00:00 199.2 [lb_av] [facility] BP Diastolic 2022-09-26 00:00:00 78 mm[Hg] [facility] Height 2022-09-26 00:00:00 64 [in_i] [facility] BMI (Body Mass 2022-09-26 00:00:00 34.8 kg/m2 [facility] BP Systolic 2022-09-26 00:00:00 115 mm[Hg] [facility] Body Weight 2022-09-26 00:00:00 203 [lb_av] [facility] BP Diastolic 2022-08-22 00:00:00 104 mm[Hg] [facility] Height 2022-08-22 00:00:00 64 [in_i] [facility] BMI (Body Mass 2022-08-22 00:00:00 35.4 kg/m2 [facility] BP Systolic 2022-08-22 00:00:00 154 mm[Hg] [facility] Body Weight 2022-08-22 00:00:00 206 [lb_av] [facility] Procedures This patient has no known procedures. Plan of Care Planned Activity Planned Date Details Comments Source Future Scheduled Test 2023-06-10 IMM Influenza [facility] 00:00:00 Seasonal (>/= 19 yrs) [code = IMM Influenza Seasonal (>/= 19 yrs)] Future Scheduled Test 2023-05-04 Hepatitis C Method t [facility] 13:35:07 screening (procedure) [code = 425377119] Future Scheduled Test 2023-05-04 COVID-19 VACCINE (4 [facility] 13:35:07 - Mixed Product series) [code = COVID-19 VACCINE (4 - Mixed Product series)] Future Scheduled Test 2023-05-04 INFLUENZA VACCINE M [facility] 13:35:07 (#1) [code = INFLUENZA VACCINE (#1)] Future Scheduled Test 2023-05-04 Screening for [facility] 13:35:07 malignant neoplasm of cervix (procedure) [code = 697275283] Diagnostic Test 2022-12-26 rapid strep group [facility] Pending 00:00:00 A, throat [code = Practice rapid strep group A, throat] Future Scheduled Test 2021 [facility] 00:00:00 malignant neoplasm of cervix (procedure) [code = 684319501] Future Scheduled Test 2021 Screening for [facility] 00:00:00 malignant neoplasm of cervix (procedure) [code = 728968583] Future Scheduled Test 2021 Screening for [facility] 00:00:00 malignant neoplasm of cervix (procedure) [code = 136960267] Future Scheduled Test 2021 Scre[facility] 00:00:00 malignant neoplasm of cervix (procedure) [code = 742403524] Future Scheduled Test 2021-09-15 COVID-19 Vaccine (4 [facility] 00:00:00 - Mixed Product series) [code = COVID-19 Vaccine (4 - Mixed Product series)] Future Scheduled Test 2021-06-10 IMM Influenza [facility] 00:00:00 Seasonal Oct to November (>/= 19 yrs) [code = IMM Influenza Seasonal Oct to November (>/= 19 yrs)] Future Scheduled Test 1996 COVID-19 Vaccine [facility] 00:00:00 (1) [code = COVID-19 Vaccine (1)] Encounters Start End Encounter Admission Attending Care Care Encounter Source Date/Time Date/Time Type Type Clinicians Facility Department ID 2022-01-05 Outpatient [facility] [id number] [facility] 15:21:04 [id number] [facility] 2023-02-20 2023-02-20 Outpatient Moore_R_HOU VFP VFP [id number] [facility] 00:00:00 00:00:00 _DO [id number] Family Practic e 2022-12-26 2022-12-26 Outpatient Moore_R VFP VFP [id number] [facility] 00:00:00 00:00:00 [id number] Family Practic e 2022-12-26 2022-12-26 Outpatient Moore_R VFP VFP [id number] -[id number] [facility] 00:00:00 00:00:00 [id number] Family Practic e 2022-12-26 2022-12-26 Malone Aziza To, VFP [place] - [id number] [facility] 00:00:00 00:00:00 SENIOR PROCESS CONTROL TECH: 4120 [facility] Shailesh jaramillo [facility], [place] - e [address], _[facility] [address] , Ph. 2022-11-28 2022-11-28 Outpatient Moore_R VFP VFP [id number] -[id number] [facility] 00:00:00 00:00:00 [id number] Family Practic e 2022-11-28 2022-11-28 Outpatient Moore_R VFP VFP [id number] -[id number] [facility] 00:00:00 00:00:00 [id number] Family Practic e 2022-11-28 2022-11-28 Dao VFP [place] - [id number] [facility] 00:00:00 00:00:00 Makaylasandra Pearson, DO: [place] [id number] [facility], [address], [place] [address] , Ph. 2022-11-27 2022-11-27 Outpatient Moore_R VFP VFP [id number] -[id number] [facility] 00:00:00 00:00:00 [id number] Family Practic e 2022-11-06 2022-11-06 Outpatient Moore_R VFP VFP [id number] -[id number] [facility] 00:00:00 00:00:00 [id number] Family Practic e 2022-09-26 2022-09-26 Outpatient Moore_R VFP VFP [id number] -[id number] [facility] 00:00:00 00:00:00 [id number] Family Practic e 2022-09-26 2022-09-26 Dao VFP [place] - [id number] [facility] 00:00:00 00:00:00 Makayla Pearson, DO: [address], [address], [place] [address] , Ph. 2022-09-25 2022-09-25 Outpatient Moore_R VFP VFP [id number] -[id number] [facility] 00:00:00 00:00:00 [id number] Family Practic e 2022-09-23 2022-09-23 Outpatient Moore_R VFP VFP [id number] -[id number] [facility] 00:00:00 00:00:00 [id number] Family Practic e 2022-08-22 2022-08-22 Outpatient Moore_R VFP VFP [id number] -[id number] [facility] 00:00:00 00:00:00 [id number] Family Practic e 2022-08-22 2022-08-22 Dao VFP [place] - [id number] [facility] 00:00:00 00:00:00 Makayla [facility] Shailesh y Keaton, DO: Medical - Pra ctic 4120 [place] - e [facility], [facility], [facility] [address], [place] [address] , Ph. 2022-08-19 2022-08-19 Outpatient Moore_R VFP VFP [id number] -[id number] [facility] 00:00:00 00:00:00 [id number] Family Practic e 2022-07-23 2022-07-23 Outpatient Moore_R VFP VFP [id number] -[id number] [facility] 00:00:00 00:00:00 [id number] Family Practic e 2022-01-23 2022-01-23 Outpatient [facility] [id number] [address] [place] 00:00:00 00:00:00 ZACH [address] 2021-12-14 2021-12-14 Outpatient [facility] [id number] [place] 00:00:00 00:00:00 ZACH [address] 2021-11-21 2021-11-21 Outpatient [facility] [id number] [place] 00:00:00 00:00:[address] 2021-11-08 2021-11-08 [id number] [address] [place] [address] 14:47:46 16:05:10 [facility] 2021-10-24 2021-10-24 Outpatient [facility] PDPFFEX [facility] 00:00:00 00:00:00 [id number] 2021-10-24 2021-10-24 Outpatient [place], [facility] [id number] [place] 00:00:00 00:00:[address] 2021-10-20 2021-10-20 Outpatient [facility] [id number] 21 [place] 00:00:00 00:00:00 Health 2021-10-17 2021-10-17 Outpatient [facility] 00:00:00 00:00:00 BCR- 07 2021-09-07 2021-09-07 Outpatient , [facility] [id number] [place] 00:00:00 00:00:00 [facility] Results Test Description Test Time Test Comments Results Result Comments Source rapid strep group A, throat 2022-12-26 17:25:16 Test Item Value Reference Range Interpretation Comme nts Strep (test code = Strep) [facility], [id number] 17:25:16 Test Item Value Reference Range Interpretation Comments Strep (test code = Strep) [facility]Hemoglobin.total in [id number] 00:00:00 Test Item Value Reference Range Interpretation Comments Hemoglobin A1c/Hemoglobin.total in 7.0 % 1.0-5.7 H Blood (test code = 4548-4) average blood glucose (calculation) 154 mg/dL (test code = average blood glucose (calculation)) [facility]Hemoglobin.total in [id number] 00:00:00 Test Item Value Reference Range Interpretation Comments Hemoglobin A1c/Hemoglobin.total in 7.0 % 1.0-5.7 H Blood (test code = 4548-4) average blood glucose (calculation) 154 mg/dL (test code = average blood glucose (calculation)) [facility] - Serum or Plasma 2022-11-29 00:00:00 Test Item Value Reference Range Interpretation Comments ALT (test code = ALT) 55 U/L 0-55 AST (test code = AST) 34 U/L 5-34 BUN (test code = BUN) 9.1 mg/dL 7.0-25.0 alk phos (test code = alk phos) 56 unit/L 40-150 glucose (test code = glucose) 124 mg/dL 70-99 H albumin (test code = albumin) 4.2 g/dL 3.4-5.1 creatinine (test code = 0.73 mg/dL 0.57-1.11 creatinine) eGFR (test code = eGFR) >60 total bilirubin (test code = 0.8 mg/dL 0.2-1.2 total bilirubin) sodium (test code = sodium) 138 mEq/L 135-145 potassium (test code = potassium) 5.1 mEq/L 3.5-5.3 chloride (test code = chloride) 103 mmol/L 98-110 total protein (test code = total 7.9 g/dL 6.1-8.2 protein) calcium (test code = calcium) 10.2 mg/dL 8.4-10.4 CO2 (test code = CO2) 24.4 mmol/L 20.0-32.0 anion gap (test code = anion gap) 11 calc [facility] panel - Serum or [id number] 00:00:00 Test Item Value Reference Range Interpretation Comments HDL (test code = HDL) 54 mg/dL triglyceride (test code = 160 mg/dL <150 H triglyceride) VLDL (calculated) (test code = VLDL 32 mg/dL (calculated)) cholesterol/HDL ratio (test code = 4.8 mg/dL cholesterol/HDL ratio) non-HDL cholesterol (calculated) 203 mg/dL <160 H (test code = non-HDL cholesterol (calculated)) cholesterol (test code = 257 mg/dL <200 H cholesterol) Cholesterol in LDL [Mass/volume] in 171 mg/dL <130 H Serum or Plasma (test code = 2089-1) [facility] Ratio] in [id number] 00:00:00 Test Item Value Reference Range Interpretation Comments microalbumin random urine 8 ug/mL (test code = microalbumin random urine) creatinine random urine (test 41.9 mg/dL 20.0-320.0 code = creatinine random urine) microalbumin/creatinine 19 mcg/mg creat (random urine) ratio calculated (test code = microalbumin/creatinine (random urine) ratio calculated) [facility] - [id number] 00:00:00 Test Item Value Reference Range Interpretation Comments WBC (test code = WBC) 10.80 x10*3/?L 4.00-11.00 RBC (test code = RBC) 4.90 10*12/L 3.93-5.22 hemoglobin (test code = 14.10 g/dL 11.20-15.70 hemoglobin) hematocrit (test code = 47.4 % 34.1-44.9 H hematocrit) MCV (test code = MCV) 96.7 fL 80.0-100.0 MCH (test code = MCH) 28.8 pg 25.6-32.2 MCHC (test code = MCHC) 29.7 g/dL 32.2-35.5 L RDW-SD (test code = RDW-SD) 47.8 fL 36.4-46.3 H platelet count (test code = 363.0 k/uL 150.0-400.0 platelet count) MPV (test code = MPV) 12.4 fL 7.5-11.5 H neut% (test code = neut%) 62.3 % 34.0-71.1 lymph% (test code = lymph%) 30.5 % 19.3-51.7 mon% (test code = mon%) 5.2 % 4.7-12.5 eos% (test code = eos%) 1.2 % 0.7-5.8 baso% (test code = baso%) 0.6 % 0.1-1.2 neut# (test code = neut#) 6.7 x10*3/?L 1.6-6.1 H lymph# (test code = lymph#) 3.3 x10*3/?L 1.2-3.7 mon# (test code = mon#) 0.6 x10*3/?L 0.2-0.9 eos# (test code = eos#) 0.13 x10*3/?L 0.04-0.36 baso# (test code = baso#) 0.07 x10*3/?L 0.01-0.08 [facility] 2000 panel - Serum or Plasma 2022-11-29 00:00:00 Test Item Value Reference Range Interpretation Comments ALT (test code = ALT) 55 U/L 0-55 AST (test code = AST) 34 U/L 5-34 BUN (test code = BUN) 9.1 mg/dL 7.0-25.0 alk phos (test code = alk phos) 56 unit/L 40-150 glucose (test code = glucose) 124 mg/dL 70-99 H albumin (test code = albumin) 4.2 g/dL 3.4-5.1 creatinine (test code = 0.73 mg/dL 0.57-1.11 creatinine) eGFR (test code = eGFR) >60 total bilirubin (test code = 0.8 mg/dL 0.2-1.2 total bilirubin) sodium (test code = sodium) 138 mEq/L 135-145 potassium (test code = potassium) 5.1 mEq/L 3.5-5.3 chloride (test code = chloride) 103 mmol/L 98-110 total protein (test code = total 7.9 g/dL 6.1-8.2 protein) calcium (test code = calcium) 10.2 mg/dL 8.4-10.4 CO2 (test code = CO2) 24.4 mmol/L 20.0-32.0 anion gap (test code = anion gap) 11 calc [facility] panel - Serum or [id number] 00:00:00 Test Item Value Reference Range Interpretation Comments HDL (test code = HDL) 54 mg/dL triglyceride (test code = 160 mg/dL <150 H triglyceride) VLDL (calculated) (test code = VLDL 32 mg/dL (calculated)) cholesterol/HDL ratio (test code = 4.8 mg/dL cholesterol/HDL ratio) non-HDL cholesterol (calculated) 203 mg/dL <160 H (test code = non-HDL cholesterol (calculated)) cholesterol (test code = 257 mg/dL <200 H cholesterol) Cholesterol in LDL [Mass/volume] in 171 mg/dL <130 H Serum or Plasma (test code = 2089-1) [facility] [Mass Ratio] in [id number] 00:00:00 Test Item Value Reference Range Interpretation Comments microalbumin random urine 8 ug/mL (test code = microalbumin random urine) creatinine random urine (test 41.9 mg/dL 20.0-320.0 code = creatinine random urine) microalbumin/creatinine 19 mcg/mg creat (random urine) ratio calculated (test code = microalbumin/creatinine (random urine) ratio calculated) [facility] Differential panel - [id number] 00:00:00 Test Item Value Reference Range Interpretation Comments WBC (test code = WBC) 10.80 x10*3/?L 4.00-11.00 RBC (test code = RBC) 4.90 10*12/L 3.93-5.22 hemoglobin (test code = 14.10 g/dL 11.20-15.70 hemoglobin) hematocrit (test code = 47.4 % 34.1-44.9 H hematocrit) MCV (test code = MCV) 96.7 fL 80.0-100.0 MCH (test code = MCH) 28.8 pg 25.6-32.2 MCHC (test code = MCHC) 29.7 g/dL 32.2-35.5 L RDW-SD (test code = RDW-SD) 47.8 fL 36.4-46.3 H platelet count (test code = 363.0 k/uL 150.0-400.0 platelet count) MPV (test code = MPV) 12.4 fL 7.5-11.5 H neut% (test code = neut%) 62.3 % 34.0-71.1 lymph% (test code = lymph%) 30.5 % 19.3-51.7 mon% (test code = mon%) 5.2 % 4.7-12.5 eos% (test code = eos%) 1.2 % 0.7-5.8 baso% (test code = baso%) 0.6 % 0.1-1.2 neut# (test code = neut#) 6.7 x10*3/?L 1.6-6.1 H lymph# (test code = lymph#) 3.3 x10*3/?L 1.2-3.7 mon# (test code = mon#) 0.6 x10*3/?L 0.2-0.9 eos# (test code = eos#) 0.13 x10*3/?L 0.04-0.36 baso# (test code = baso#) 0.07 x10*3/?L 0.01-0.08 [facility]
[2023-05-04] MEDS ORDERED: KETOROLAC 30 MG/ML INJ ONE (15:21)
[2023-05-04] MEDS ORDERED: CYCLOBENZAPRINE 10 MG TAB ONE (15:21)
[2023-05-04] MEDS ORDERED: NA CHLORIDE 0.9% 1,000 ML ONE (15:21)
[2023-05-04 15:44] LABS: Absolute Lymphocytes (CBC) 1.9 K/uL (0.7-4.9); Hematocrit 42.1 % (36.0-45.0); Lymphocytes % 11.8 % (15.3-44.8); MCV 85.7 fL (80-100); MPV 9.6 fL (7.6-11.3); Platelets 251 thou/uL (152-406); RBC Red Blood Cell Count 4.91 M/uL (3.86-4.86)
[2023-05-04 15:55] LABS: Albumin 3.1 g/dL (3.4-5.0); Bilirubin Total 0.8 mg/dL (0.2-1.0); Potassium 3.7 mEq/L (3.5-5.1); Protein, Total 7.7 g/dL (6.4-8.2)
[2023-05-04 16:34] LABS: CSF Glucose 84 mg/dL (40-70)
[2023-05-04] MEDS: ACYCLOVIR INJ 700 MG in NA CHLORIDE 0.9% 100 ML IVPB SCH (17:00)
--- NOTE | 2023-05-04 17:25 | ER ---
Nurse's Notes [facility] Name: Aliya Floyd Age: 32 yrs Sex: Female : 1990 Arrival Date: 05/04/2023 Time: 14:15 Bed 10 Private MD: Diagnosis: Hypo-osmolality and hyponatremia;Rule out meningitis Presentation: 05/04 14:40 Chief complaint: Patient states: I have had a headache since Sunday. I was here cm10 yesterday and they wanted to do and LP but I decided to wait. Coronavirus screen: Vaccine status: Patient reports receiving the 2nd dose of the covid vaccine. Client denies travel out of the [place] in the last 14 days. Ebola Screen: Patient denies travel to an Ebola-affected area in the 21 days before illness onset. No symptoms or risks identified at this time. Initial Sepsis Screen: Does the patient meet any 2 criteria? No. Patient's initial sepsis screen is negative. Does the patient have a suspected source of infection? No. Patient's initial sepsis screen is negative. Risk Assessment: Do you want to hurt yourself or someone else? Patient reports no desire to harm self or others. Onset of symptoms was April 30, 2023. 14:40 Method Of Arrival: Wheelchair cm10 14:40 Acuity: GERSON 3 cm10 Historical: - Allergies: 14:44 No Known Allergies; cm10 - PMHx: 14:43 Hypertensive disorder; cm10 - PSHx: 14:43 None; cm10 - Immunization history:: Adult Immunizations up to date. - Social history:: Smoking status: Patient denies any tobacco usage or history of. - Family history:: not pertinent. Screenin:49 [facility] ED Fall Risk Assessment (Adult) Score/Fall Risk Level 0 - 2 = Low Risk hb Oriented to surroundings, Maintained a safe environment. Abuse screen: Denies threats or abuse. Denies injuries from another. Nutritional screening: No deficits noted. Tuberculosis screening: No symptoms or risk factors identified. Assessment: 15:49 General: Appears in no apparent distress. uncomfortable, Behavior is calm, cooperative. hb Pain: Pain currently is 9 out of 10 on a pain scale. Neuro: Level of Consciousness is awake, alert, obeys commands, Oriented to person, place, time, situation, Reports headache. Cardiovascular: Patient's skin is warm and dry. Respiratory: Respiratory effort is even, unlabored, Respiratory pattern is regular, symmetrical. GI: No signs and/or symptoms were reported involving the gastrointestinal system. : No signs and/or symptoms were reported regarding the genitourinary system. EENT: No signs and/or symptoms were reported regarding the EENT system. Derm: Skin is pink, warm \T\ dry. Musculoskeletal: No signs and/or symptoms reported regarding the musculoskeletal system. 17:00 Reassessment: Patient appears in no apparent distress at this time. Patient and/or hb family updated on plan of care and expected duration. Pain level reassessed. Patient is alert, oriented x 3, equal unlabored respirations, skin warm/dry/pink. 18:00 Reassessment: Patient appears in no apparent distress at this time. No changes from jl7 previously documented assessment. Patient and/or family updated on plan of care and expected duration. Pain level reassessed. Patient is alert, oriented x 3, equal unlabored respirations, skin warm/dry/pink. 19:00 Reassessment: Patient appears in no apparent distress at this time. No changes from jl7 previously documented assessment. Patient and/or family updated on plan of care and expected duration. Pain level reassessed. Patient is alert, oriented x 3, equal unlabored respirations, skin warm/dry/pink. Vital Signs: 14:40 BP 152 / 98; Pulse 91; Resp 18; Temp 98.2; Pulse Ox 100% ; Weight 88.45 kg; Height 5 cm10 ft. 4 in. ; Pain 10/10; 17:00 BP 157 / 91; Pulse 68; Resp 16; Temp 99.7(O); Pulse Ox 97% on R/A; Pain 7/10; hb 14:40 Body Mass Index 33.47 (88.45 kg, 162.56 cm) cm10 14:40 Pain Scale: Adult cm10 17:00 Pain Scale: Adult hb ED Course: 14:17 Patient arrived in ED. rg4 14:26 Abbe Spear MD is Attending Physician. rt 14:43 Triage completed. cm10 14:44 Arm band placed on Patient placed in an exam room, on a stretcher. cm10 15:02 Laura Powers, JULIAN is Primary Nurse. hb 15:30 Inserted saline lock: 20 gauge in right antecubital area, using aseptic technique. hb Blood collected. 15:33 CMP Sent. hb 15:34 CBC with Diff Sent. hb 15:45 Patient has correct armband on for positive identification. Provided Education on: hb Procedure Consent. 16:16 Assist provider with lumbar puncture: Set up LP tray. Performed by Abbe Spear MD hb CSF Sample collected. Sample sent to lab. Puncture site dressed with band aid, Procedure was successful. Patient tolerated well. 17:24 Rachid Tavares MD is Hospitalizing Provider. rt 19:00 Patient admitted, IV remains in place. intact, No redness/swelling at site. jl7 Administered Medications: 15:33 Drug: Ketorolac IVP 15 mg Route: IVP; Site: right antecubital; hb 19:20 Follow up: Response: No adverse reaction jl7 15:33 Drug: NS 0.9% IV 1000 ml Route: IV; Rate: 1 bolus; Site: right antecubital; hb 17:00 Follow up: Response: No adverse reaction; IV Intake: 1000ml jl7 17:00 Follow up: IV Status: Completed infusion jl7 15:33 Drug: Cyclobenzaprine PO 10 mg Route: PO; hb 19:22 Follow up: Response: No adverse reaction jl7 18:45 Drug: Rocephin - Rocephin (cefTRIAXone) IVPB 2 grams Route: IVPB; Infused Over: 30 jl7 mins; Site: left forearm; 19:15 Follow up: Response: No adverse reaction; IV Status: Completed infusion jl7 18:50 Drug: Fluconazole IVPB 200 mg Volume: 100 ml; Route: IVPB; Infused Over: 60 mins; Site: jl7 right antecubital; 19:50 Follow up: Response: No adverse reaction; IV Status: Completed infusion; IV Intake: jl7 100ml 19:19 Drug: vancoMYCIN IVPB 2 grams {Note: dose adjusted by pharmacy for loading dose.} jl7 Route: IVPB; Infused Over: 2 hrs; Site: right antecubital; 20:31 Follow up: IV Status: Infusion continued upon admission jl7 19:20 Drug: Acyclovir IVPB 10 mg/kg Route: IVPB; Site: left forearm; jl7 20:31 Follow up: IV Status: Infusion continued upon admission jl7 Medication: 15:49 VIS not applicable for this client. hb Intake: 17:00 IV: 1000ml; Total: 1000ml. jl7 19:50 IV: 100ml; Total: 1100ml. jl7 Outcome: 17:24 Decision to Hospitalize by Provider. rt 19:00 Admitted to Med/surg accompanied by tech, via stretcher, room 417, with chart, Report jl7 called to JULIAN Araujo 19:00 Condition: stable 19:00 Discharge instructions given to patient, family, Instructed on the need for admit. 20:32 Patient left the ED. jl7 Signatures: Laura Powers, RN RN Remedios Monroy rg4 Maria Teresa Acosta RN RN jl7 Abbe Spear MD MD rt Diana Valentine RN RN cm10 Corrections: (The following items were deleted from the chart) 19:21 17:00 Response: No adverse reaction; IV Status: Completed infusion; IV Intake: 1000ml izaiah jl7
--- NOTE | 2023-05-04 17:25 | EDPHYS ---
Physician Documentation [facility] Name: Aliya Floyd Age: 32 yrs Sex: Female : 1990 Arrival Date: 05/04/2023 Time: 14:15 Bed 10 Private MD: ED Physician Abbe Spear HPI: 05/04 16:57 This 32 yrs old Female presents to ER via Wheelchair with complaints of rt Headache, Neck Pain, <24hrs Old. 16:57 Patient presents to the ED with persistence of neck pain. Patient states that her rt headache has improved and her nausea has improved as well and that her fever has abated. She continues to have neck stiffness. Saw patient yesterday for headache, fever, neck stiffness and offer her a lumbar puncture at that time, she declined it, however, she states that she changed her mind wishes to have the testing be performed. She denies other acute complaints at this time, symptoms are moderate severity, no other aggravating or alleviating factors.. Historical: - Allergies: 14:44 No Known Allergies; cm10 - PMHx: 14:43 Hypertensive disorder; cm10 - PSHx: 14:43 None; cm10 - Immunization history:: Adult Immunizations up to date. - Social history:: Smoking status: Patient denies any tobacco usage or history of. - Family history:: not pertinent. ROS: 16:57 Constitutional: Negative for fever, chills, and weight loss, Cardiovascular: Negative rt for chest pain, palpitations, and edema, Respiratory: Negative for shortness of breath, cough, wheezing, and pleuritic chest pain, Skin: Negative for injury, rash, and discoloration, Psych: Negative for depression, anxiety, suicide ideation, homicidal ideation, and hallucinations. 16:57 Neck: Positive for pain at rest, stiffness. 16:57 Neuro: Positive for headache, Negative for altered mental status. Exam: 16:57 Constitutional: This is a well developed, well nourished patient who is awake, alert, rt and in no acute distress. Head/Face: Normocephalic, atraumatic. Chest/axilla: Normal chest wall appearance and motion. Nontender with no deformity. No lesions are appreciated. Cardiovascular: Regular rate and rhythm with a normal S1 and S2. No gallops, murmurs, or rubs. Normal PMI, no JVD. No pulse deficits. Respiratory: Lungs have equal breath sounds bilaterally, clear to auscultation and percussion. No rales, rhonchi or wheezes noted. No increased work of breathing, no retractions or nasal flaring. Abdomen/GI: Soft, non-tender, with normal bowel sounds. No distension or tympany. No guarding or rebound. No evidence of tenderness throughout. Skin: Warm, dry with normal turgor. Normal color with no rashes, no lesions, and no evidence of cellulitis. MS/ Extremity: Pulses equal, no cyanosis. Neurovascular intact. Full, normal range of motion. Neuro: Awake and alert, GCS 15, oriented to person, place, time, and situation. Cranial nerves II-XII grossly intact. Motor strength 5/5 in all extremities. Sensory grossly intact. Cerebellar exam normal. Normal gait. Psych: Awake, alert, with orientation to person, place and time. Behavior, mood, and affect are within normal limits. Vital Signs: 14:40 BP 152 / 98; Pulse 91; Resp 18; Temp 98.2; Pulse Ox 100% ; Weight 88.45 kg; Height 5 cm10 ft. 4 in. ; Pain 10/10; 17:00 BP 157 / 91; Pulse 68; Resp 16; Temp 99.7(O); Pulse Ox 97% on R/A; Pain 7/10; hb 14:40 Body Mass Index 33.47 (88.45 kg, 162.56 cm) cm10 14:40 Pain Scale: Adult cm10 17:00 Pain Scale: Adult hb Procedures: 16:57 Lumbar Puncture: Patient placed in right lateral decubitus position. Collected 5 ml's rt of clear fluid. Sample sent to lab. Puncture site dressed with band aid, Patient tolerated well. MDM: 14:45 Patient medically screened. rt 17:26 Differential diagnosis: meningitis, meningoencephalitis, Electrolyte disturbance. Data rt reviewed: vital signs, nurses notes, lab test result(s). Consideration of Admission/Observation Patient was admitted/placed on observation. Management of patient was discussed with the following: Hospitalist: Agrees to admit. I considered the following discharge prescriptions or medication management in the emergency department Medications were administered in the Emergency Department. See MAR. Test considered but Not performed: CT: CT scan done yesterday, not needed for today.. Care significantly affected by the following chronic conditions: Hypertension. Counseling: I had a detailed discussion with the patient and/or guardian regarding the historical points, exam findings, and any diagnostic results supporting the discharge/admit diagnosis, lab results, the need for further work-up and treatment in the hospital. Response to treatment: the patient's symptoms have mildly improved after treatment. 05/04 15:00 Order name: CBC with Diff; Complete Time: 16:26 rt 05/04 15:00 Order name: CMP; Complete Time: 16:26 rt 05/04 15:00 Order name: Csf Culture rt 05/04 15:00 Order name: Fluid Cell Count,Body rt 05/04 15:00 Order name: Spinal Fluid Profile rt 05/04 16:55 Order name: UAM rt 05/04 16:55 Order name: Urine Sodium Random; Complete Time: 17:48 rt 05/04 17:37 Order name: CBC with Automated Diff EDMS 05/04 17:37 Order name: CBC with Automated Diff EDMS 05/04 17:37 Order name: Comprehensive Metabolic Panel EDMS 05/04 17:37 Order name: Comprehensive Metabolic Panel EDMS 05/04 17:37 Order name: Magnesium EDMS 05/04 17:37 Order name: Magnesium EDMS 05/04 17:37 Order name: Phosphorus EDMS 05/04 17:37 Order name: Phosphorus EDMS 05/04 17:38 Order name: Lactate w/ 2H reflex if indic. rt 05/04 17:38 Order name: Blood Culture Adult (2) rt 05/04 17:38 Order name: Sodium Level EDMS 05/04 17:38 Order name: Sodium Level EDMS 05/04 17:38 Order name: Sodium Level EDMS 05/04 17:38 Order name: Sodium Level EDMS 05/04 17:38 Order name: Sodium Level EDMS 05/04 17:43 Order name: Osmolality, Urine EDMS 05/04 17:47 Order name: Test Serum, Qualitat EDMS 05/04 17:37 Order name: Regular EDMS 05/04 15:00 Order name: Lumbar Puncture Setup; Complete Time: 15:38 rt 05/04 15:00 Order name: Lumbar Puncture Consent; Complete Time: 15:38 rt 05/04 15:00 Order name: LP Consents; Complete Time: 15:38 rt 05/04 15:00 Order name: LP Setup; Complete Time: 15:33 rt Administered Medications: 15:33 Drug: Ketorolac IVP 15 mg Route: IVP; Site: right antecubital; hb 19:20 Follow up: Response: No adverse reaction jl7 15:33 Drug: NS 0.9% IV 1000 ml Route: IV; Rate: 1 bolus; Site: right antecubital; hb 17:00 Follow up: Response: No adverse reaction; IV Intake: 1000ml jl7 17:00 Follow up: IV Status: Completed infusion jl7 15:33 Drug: Cyclobenzaprine PO 10 mg Route: PO; hb 19:22 Follow up: Response: No adverse reaction jl7 18:45 Drug: Rocephin - Rocephin (cefTRIAXone) IVPB 2 grams Route: IVPB; Infused Over: 30 jl7 mins; Site: left forearm; 19:15 Follow up: Response: No adverse reaction; IV Status: Completed infusion jl7 18:50 Drug: Fluconazole IVPB 200 mg Volume: 100 ml; Route: IVPB; Infused Over: 60 mins; Site: jl7 right antecubital; 19:50 Follow up: Response: No adverse reaction; IV Status: Completed infusion; IV Intake: jl7 100ml 19:19 Drug: vancoMYCIN IVPB 2 grams {Note: dose adjusted by pharmacy for loading dose.} jl7 Route: IVPB; Infused Over: 2 hrs; Site: right antecubital; 20:31 Follow up: IV Status: Infusion continued upon admission jl7 19:20 Drug: Acyclovir IVPB 10 mg/kg Route: IVPB; Site: left forearm; jl7 20:31 Follow up: IV Status: Infusion continued upon admission jl7 Disposition Summary: 05/04/23 17:24 Hospitalization Ordered Hospitalization Status: Observation rt Provider: Rachid Tavares rt Location: Telemetry/MedSurg (observation) rt Condition: Fair rt Problem: new rt Symptoms: are unchanged rt Bed/Room Type: Standard rt Room Assignment: 417(05/04/23 19:10) Diagnosis - Hypo-osmolality and hyponatremia rt - Rule out meningitis rt Forms: - Medication Reconciliation Form rt - SBAR form rt - Leadership Thank You Letter rt Signatures: Dispatcher Med[employer] Azeb Ornelas RN RN Laura Serna RN RN Maria Teresa Ramos, RN RN jl7 Abbe Spear MD MD rt Diana Valentine RN RN cm10 Corrections: (The following items were deleted from the chart) 19:10 17:24 rt adams
[2023-05-04] MEDS ORDERED: CEFTRIAXONE 1000 MG/VIAL ONE (17:33)
[2023-05-04] MEDS ORDERED: ONDANSETRON 4 MG/2 ML VIAL IV PRN (17:33)
[2023-05-04] MEDS ORDERED: ACETAMINOPHEN 325 MG TABLET PO PRN ×2 (17:33→23:13)
[2023-05-04] MEDS ORDERED: VANCOMYCIN 1 GM/VIAL ONE (17:33)
[2023-05-04] MEDS ORDERED: NA CHLORIDE 0.9% 100 ML ONE (17:34)
[2023-05-04] MEDS ORDERED: NA CHLORIDE 0.9% 0 ML ONE (17:34)
[2023-05-04] MEDS ORDERED: GLUCAGON 1 MG/VIAL IM PRN (17:40)
[2023-05-04] MEDS ORDERED: D50W 25 GM/50 ML SYRINGE IV PRN (17:40)
--- NOTE | 2023-05-04 17:43 | P.HP ---
Certification for Inpatient Patient admitted to: Inpatient With expected LOS: >2 Midnights Patient will require the following post-hospital care: None Practitioner: I am a practitioner with admitting privileges, knowledge of patient current condition, hospital course, and medical plan of care. Services: Services provided to patient in accordance with Admission requirements found in Title 42 Section 412.3 of the Code of Federal Regulations Patient History Date of Service: 05/04/23 Reason for admission: Suspected meningitis, encephalitis, hyponatremiasevere History of Present Illness: 32-year-old female patient was presented to the emergency with complaint of persistent headache for the past week. Patient reportedly been having issues with a headache that has been persistent and she also has photophobia. She denies trauma to the head, overt fever, chills. She did have episode of nausea with vomiting about 2 to 3 days prior. She also did have issues with increased pain in the neck area especially when flexing the neck forward. She denied overt episode of seizures, altered mentation. She was asked to be evaluated by hospitalist service for management of suspected intracranial infection because of clinical presentation. CSF done on initial presentation was significant for elevated protein level. Other tests were pending at the time of this dictation. She also was found to have low sodium of 121. Allergies No Known Allergies Allergy (Unverified 05/04/23 17:28) Home medications list reviewed: No (pending review and update by nursing staff) Review of Systems General: Weakness, Malaise Eyes: Pain, Vision Change ENT: Unremarkable Respiratory: Unremarkable Cardiovascular: Unremarkable Gastrointestinal: Unremarkable Genitourinary: Unremarkable Musculoskeletal: Unremarkable Integumentary: Unremarkable Neurological: As per HPI Physical Examination - Physical Exam General: Alert, Oriented x3 HEENT: Atraumatic, Normocephalic Neck: Other (tenderness on flexing the neck.) Respiratory: Normal air movement Cardiovascular: Regular rate/rhythm, Normal S1 S2 Gastrointestinal: Soft and benign Musculoskeletal: Other (positive kernig's sign.) Integumentary: No rashes Neurological: Normal speech, Normal strength at 5/5 x4 extr, Abnormal reflexes - Studies Laboratory Data (last 24 hrs) 05/04/23 05/04/23 15:29 15:29 WBC 16.40 H Hgb 14.1 Hct 42.1 Plt Count 251 Sodium 121 L Potassium 3.7 BUN 7 Creatinine 0.69 Glucose 190 H Total Bilirubin 0.8 AST 14 L ALT 37 Alkaline Phosphatase 39 L Assessment and Plan - Plan Suspected meningitis/encephalitis: Patient presentation significant concern as she has positive clinic signs, headache and also neck pain. We have started patient on empiric antibiotic therapy with vancomycin, ceftriaxone and antiviral with acyclovir to cover viral encephalitis We will continue routine care with addition of dexamethasone to assist with cerebral edema. We will monitor patient's symptomatology and cultures. We will adjust anti-infective agent to address appropriate growth on cultures. Hyponatremia: Deemed secondary to possible intracranial infection however patient has had nausea with vomiting episode and there is also concerns for volume depletion with hypovolemic hyponatremia We have consulted nephrology for additional management. Was started on normal saline infusion We will monitor serum sodium every 6hr. Prophylaxis: Lovenox for DVT prophylaxis CODE STATUS: Full code Disposition: We will treat patient's present intracranial infection/headache and also treat sodium sodium abnormality. She will be discharged once she is deemed clinically stable. Discharge Plan: Home - Advance Directives Does patient have a Living Will: No Does patient have a Durable POA for Healthcare: No
[2023-05-04 17:55] LABS: Specific Gravity 1.019 (1.005-1.030); Urine Bacteria None Seen /HPF (<20); Urine Bilirubin NEGATIVE (Negative); Urine Blood 3+ (Negative); Urine Clarity Clear (Clear); Urine Color Light-Yellow (Yellow); Urine Glucose 4+ (Negative); Urine Protein 1+ (Negative); Urine Urobilinogen Normal (Normal); Urine pH 6.5 (5.0-7.0)
[2023-05-04 17:58] LABS: Body Fluid Source CSF
[2023-05-04 17:59] LABS: Appearance CLEAR (CLEAR); Body Fluid WBC 60 /mm^3; Color of fluid Colorless (COLORLESS)
[2023-05-04] MEDS ORDERED: FLUCONAZOLE 200mg IVPB 200 MG/100 ML BAG IV ONE (18:00)
[2023-05-04] MEDS ORDERED: VANCOMYCIN 2 GM in NA CHLORIDE 0.9% 500 ML IVPB ONE (18:00)
[2023-05-04 18:05] LABS: Body Fluid WBC 53 /mm^3
[2023-05-04 18:11] LABS: Appearance ND (CLEAR); Body Fluid Source ND; Color of fluid ND (COLORLESS); Fluid Total Volume ND ml
[2023-05-04] MEDS ORDERED: D10W 125 ML IV PRN (18:25)
[2023-05-04] MEDS: HYDROCODONE/APAP 7.5/325 MG TAB PO PRN (22:34)
[2023-05-04] MEDS: NA CHLORIDE 0.9% 1,000 ML IV SCH (22:35)
[2023-05-04] MEDS ORDERED: IBUPROFEN 400 MG TAB PO PRN (23:13)
[2023-05-04 23:33] VITALS: BMI 33.5
[2023-05-04] MEDS: INSULIN -REGULAR HUMAN 50 UNIT/0.5 ML ML SQ SCH (23:45)
[2023-05-05] MEDS: dexAMETHasone 4 MG/ML VIAL IV SCH ×3 (02:13→17:40)
[2023-05-05] MEDS: ACYCLOVIR INJ 700 MG in NA CHLORIDE 0.9% 100 ML IVPB SCH ×3 (02:18→17:39)
[2023-05-05] MEDS: NA CHLORIDE 0.9% 1,000 ML IV SCH (04:00)
[2023-05-05 06:08] LABS: Absolute Lymphocytes (CBC) 1.3 K/uL (0.7-4.9); Hematocrit 38.4 % (36.0-45.0); Lymphocytes % 8.4 % (15.3-44.8); MPV 9.9 fL (7.6-11.3); Platelets 246 thou/uL (152-406); RBC Red Blood Cell Count 4.52 M/uL (3.86-4.86)
[2023-05-05 07:02] LABS: Albumin 2.7 g/dL (3.4-5.0); Bilirubin Total 0.8 mg/dL (0.2-1.0); Magnesium 2.2 mg/dL (1.6-2.4); Phosphorus 2.2 mg/dL (2.5-4.9); Potassium 3.7 mEq/L (3.5-5.1); Protein, Total 7.1 g/dL (6.4-8.2)
[2023-05-05 09:26] LABS: Potassium 3.7 mEq/L (3.5-5.1)
[2023-05-05] MEDS: VANCOMYCIN 1.5 GM in NA CHLORIDE 0.9% 500 ML IVPB SCH ×2 (10:27→20:14)
[2023-05-05] MEDS: CEFTRIAXONE 2,000 MG in NA CHLORIDE 0.9% 100 ML IV SCH ×2 (10:27→17:39)
--- NOTE | 2023-05-05 10:27 | P.PN ---
Subjective Date of Service: 05/05/23 Chief Complaint: Suspected meningitis, encephalitis, hyponatremiasevere Subjective: No new changes, Improving Physical Examination - Vital Signs Temperature: 98.3 F Blood Pressure: 148/85 Pulse: 69 Respirations: 16 Pulse Ox (%): 97 - Physical Exam General: Alert, In no apparent distress HEENT: Atraumatic, Normocephalic Respiratory: Normal air movement Cardiovascular: Regular rate/rhythm, Normal S1 S2 Gastrointestinal: Soft and benign Musculoskeletal: No swelling Neurological: Normal speech, Normal strength at 5/5 x4 extr - Studies Laboratory Data (last 24 hrs) 05/04/23 05/04/23 15:29 15:29 WBC 16.40 H Hgb 14.1 Hct 42.1 Plt Count 251 Sodium 121 L Potassium 3.7 BUN 7 Creatinine 0.69 Glucose 190 H Total Bilirubin 0.8 AST 14 L ALT 37 Alkaline Phosphatase 39 L Microbiology Data (last 24 hrs): 05/04/23 16:01 Cerebral Spinal Fluid Gram Stain - Final Assessment And Plan - Plan Suspected meningitis/encephalitis: Patient presentation significant concern as she has positive kernig's signs, headache and also neck pain. We have started patient on empiric antibiotic therapy with vancomycin, ceftriaxone and antiviral with acyclovir to cover viral encephalitis We will continue routine care with addition of dexamethasone to assist with cerebral edema. We will monitor patient's symptomatology and cultures. We will adjust anti-infective agent to address appropriate growth on cultures. Hyponatremia: Deemed secondary to possible intracranial infection however patient has had nausea with vomiting episode and there is also concerns for volume depletion with hypovolemic hyponatremia. serum sodium is still very low at 121 this am. we will start salt tablets at 2g TID. We have consulted nephrology for additional management. We will monitor serum sodium every 6hr. Prophylaxis: Lovenox for DVT prophylaxis CODE STATUS: Full code Disposition: We will treat patient's present intracranial infection/headache and also treat sodium abnormality. She will be discharged once she is deemed clinically stable.
[2023-05-05] MEDS: ENOXAPARIN 40 MG/0.4 ML SQ SCH (10:28)
[2023-05-05] MEDS: INSULIN -REGULAR HUMAN 50 UNIT/0.5 ML ML SQ SCH ×4 (10:29→20:41)
[2023-05-05] MEDS: SODIUM CHLORIDE 1 GM TAB PO SCH ×3 (11:47→20:14)
[2023-05-05] MEDS: VITAMIN D 5,000 UNIT CAP PO SCH (11:49)
--- NOTE | 2023-05-05 12:46 | CON ---
History Of Present Illness: The patient seen in room 417 at [facility]. Patient is alert, awake and comfortable. Denies any significant pain. Her headache has significantly improved, is clinically looking well. Patient states she went to the hospital because she was having some headache that has not been similar to what she has had before, but she does have migraines that she gets about 2 to 3 times a year. Patient is new to the [facility]. She states that as she was moving, she dropped something on her head and had a bump one day. She forgot to tell the doctors about that, but the bump has now resolved and not a problem at all. Patient denies any other issues. Past Medical History: Includes prediabetes for which she is diet controlled. She has history of high blood pressure for which she thinks she takes nifedipine and propranolol. She has migraines. She has also been on Topamax in the past. Currently, I am not sure if she is taking the medication. She thinks she was only taking propranolol, nifedipine, and there was a cholesterol medication also given to her that she has not started. I think it was crestor as per patient. Family History: Noncontributory. Social History: Patient does not drink or smoke cigarettes or use any drugs. She does use albuterol and Symbicort also for history of asthma. Physical Examination: Vital Signs: Patient's vitals are relatively stable. Blood pressure has been a little bit on the higher side. Patient states that she has not been taking her medications regularly recently, but has been started on them for about a week or so. Her blood pressure is currently 148/85 on the last check. Respirations are 14 to 16. Pulse is about 70. Lungs: Clear. Abdomen: Soft. Extremities: Reveal no edema. Cardiac: Heart sounds are regular. Laboratory Data: Reviewed. Labs show WBC of 15.7, hemoglobin 13.1, hematocrit 38.4, platelet count of 246. Chemistry shows sodium 121, which is improved slightly from the morning at 119; potassium at about 3.7; chloride is 89; bicarb is 23; BUN is 7; creatinine is 0.44; glucose at 179, repeat was at about 182; corrected sodium is about 123; calcium is at about 7.6. Cortisol level of 19 and patient has been on Decadron. TSH level of 0.55, which is in normal range. Patient's albumin was low at about 2.7, last one before that was 3.1. Urinalysis showed some glucose, some ketones, and some blood in the urine, RBCs were at about 5 to 10. Random sodium was at 120. Patient had CSF from the tap, which shows clear appearance, WBCs were about 53, RBCs were about 4000, glucose was about 84, CSF protein was about 75. Microbiology for CSF culture shows no organisms and no growth so far. Assessment And Plan: 1. Patient is a young female who presents with question of some injury to the head when she was moving. Patient does not have any injury evident on physical exam. She thinks she had a bump a few days back. She is stabilizing on sodium with sodium currently at 121. She is clinically stable. Otherwise, no seizure activity. No confusion. She is alert, awake, able to answer questions appropriately. She did have a migraine and has had migraines in the past. This is not new to her, but that is also improving. She was on normal saline, which has now been stopped. Patient has been put on salt tablets and currently being treated for possibility of meningitis. She has had some medication for this including dexamethasone and acyclovir and also started on vancomycin and ceftriaxone. Continue management of meningitis as per primary team. At this point, diagnosis of meningitis is not clear. Some of the stuff from the CSF is still pending, but cultures do not show any growth currently. 2. Hyponatremia, seem to be possibly secondary to her headache, perhaps pain. Also some nausea, vomiting. Patient does seem to be close to euvolemic, possibly slightly hypovolemic. I agree with Dr. Tavares again about checking the sodium on a q.6 hour interval. Continue to keep off normal saline right now and start on salt tablets, which per document again is already done. If patient's sodium is going up rapidly, perhaps about 3 or 4 points at the next check, we can then consider cutting back on the salt tablets to 1 g t.i.d. and then further depending on how the sodium is going up. Patient does not currently seem to be on Topamax, which could have also contributed to hyponatremia. She does not seem to be on any other blood pressure medications, which will contribute to hyponatremia like hydrochlorothiazide. Balance diet, monitor sodium, and continued salt tablets for now with repeat blood work assessing sodium levels in about 6-hour intervals. I appreciate Dr. Tavares's consult. We will continue to follow the patient with him. /GERBER Voice ID: [id number] Report ID: [id number] MTDD
[2023-05-05] MEDS ORDERED: NA CHLORIDE 0.9% 100 ML ONE (17:42)
[2023-05-06] MEDS: HYDROCODONE/APAP 7.5/325 MG TAB PO PRN ×3 (00:05→19:55)
[2023-05-06] MEDS: ACYCLOVIR INJ 700 MG in NA CHLORIDE 0.9% 100 ML IVPB SCH ×3 (00:05→17:19)
[2023-05-06] MEDS: dexAMETHasone 4 MG/ML VIAL IV SCH ×3 (00:06→17:20)
[2023-05-06 01:11] LABS: Specific Gravity 1.012 (1.005-1.030); Urine Bacteria None Seen /HPF (<20); Urine Bilirubin NEGATIVE (Negative); Urine Blood 3+ (OVER) (Negative); Urine Clarity Extremely Turbid (Clear); Urine Color Light-Brown (Yellow); Urine Glucose 3+ (Negative); Urine Mucus Slight /HPF (None Seen); Urine Protein TRACE (Negative); Urine RBC >50 /HPF (None Seen); Urine Urobilinogen Normal (Normal); Urine pH 6.5 (5.0-7.0)
[2023-05-06] MEDS: CEFTRIAXONE 2,000 MG in NA CHLORIDE 0.9% 100 ML IV SCH ×2 (05:46→17:19)
[2023-05-06 08:29] LABS: Potassium 3.9 mEq/L (3.5-5.1)
[2023-05-06] MEDS: VANCOMYCIN 1.5 GM in NA CHLORIDE 0.9% 500 ML IVPB SCH ×2 (08:45→19:56)
[2023-05-06] MEDS: ENOXAPARIN 40 MG/0.4 ML SQ SCH (08:46)
[2023-05-06] MEDS: SODIUM CHLORIDE 1 GM TAB PO SCH (08:46)
[2023-05-06] MEDS: INSULIN -REGULAR HUMAN 50 UNIT/0.5 ML ML SQ SCH ×4 (08:46→21:49)
[2023-05-06] MEDS: VITAMIN D 5,000 UNIT CAP PO SCH (08:47)
--- NOTE | 2023-05-06 10:04 | PN ---
Subjective: Patient seen in room 417 at [facility]. Patient is alert, awake a nd comfortable. Still has some headache going on. Denies any nausea, vomiting, was able to eat her breakfast this morning. Sodium this morning has come up to 132. Labs and medications reviewed. Objective: Vital Signs: On evaluation of her vitals, patient's blood pressure is 132/86, last pulse is about 70-80 and regular, respirations around 14 and comfortable. The patient is afebrile. Lungs: Clear to auscultation. Abdomen: Soft. Extremities: Reveal no edema. Heart: Heart sounds are regular. Laboratory Data: On lab review, BUN is 11, creatinine is 0.6. Sodium has come up to 133. Assessment/plan: The patient with hyponatremia, now improving. Okay to hold salt tablets now. Yuli ent's volume status is improving. She is eating and drinking better. Hematuria in the urine could b e secondary to her abnormal periods. We will need GRAIN GRADER evaluation once out. We will go ahead and check double-stranded DNA to evaluate for lupus and also rheumatoid factor and complements, an ESR, C RP given family history of rheumatoid and lupus. /GERBER Voice ID: [id number] Report ID: [id number]
--- NOTE | 2023-05-06 13:19 | P.PN ---
Subjective Date of Service: 05/06/23 Chief Complaint: Suspected meningitis, encephalitis, hyponatremiasevere Subjective: No new changes, Improving (much improved mentation.) Physical Examination - Vital Signs Temperature: 97.7 F Blood Pressure: 131/83 Pulse: 73 Respirations: 16 Pulse Ox (%): 98 - Physical Exam General: Alert, Oriented x3 HEENT: Atraumatic, Normocephalic Neck: Supple Respiratory: Normal air movement Cardiovascular: Regular rate/rhythm, Normal S1 S2 Gastrointestinal: Soft and benign Musculoskeletal: No swelling Neurological: Normal speech - Studies Microbiology Data (last 24 hrs): 05/04/23 16:01 Cerebral Spinal Fluid Gram Stain - Final Assessment And Plan - Plan Suspected meningitis/encephalitis: Much improved mentation and overall well being. no more fever episodes. awaiting culture result. HIV test pending. We will adjust anti-infective agent to address appropriate growth on cultures. Hyponatremia: Better sodium level at 133 today. Nephrology following. we will manage as per nephrology recommendations. Prophylaxis: Lovenox for DVT prophylaxis CODE STATUS: Full code Disposition: We will treat patient's present intracranial infection/headache and also treat sodium abnormality. She will be discharged once she is deemed clinically stable.
[2023-05-06 15:14] LABS: Specific Gravity > 1.030 (1.005-1.030); Urine Bacteria None Seen /HPF (<20); Urine Bilirubin NEGATIVE (Negative); Urine Blood 3+ (OVER) (Negative); Urine Clarity Turbid (Clear); Urine Color Colorless (Yellow); Urine Glucose 4+ (Over) (Negative); Urine Mucus Slight /HPF (None Seen); Urine Protein TRACE (Negative); Urine RBC >50 /HPF (None Seen); Urine Urobilinogen Normal (Normal)
[2023-05-06 17:35] LABS: Potassium 3.4 mEq/L (3.5-5.1)
--- NOTE | 2023-05-06 18:30 | CON ---
Date of Consultation: 05/06/2023 Reason For Consultation: Junctional rhythm. History Of Present Illness: A 32-year-old female, no history of cardiac disease, no past medical his tory. Presented with headache, severe and persistent along with photophobia, but there was no fever. She has nausea and vomiting for few days. An EKG does show that she is in junctional rhythm, but s he has been in sinus rhythm on telemetry. I did not find any evidence of junctional rhythm on any of the available strips. Past Medical History: None. Medications: None. Allergies: NO KNOWN DRUG ALLERGIES. Family History: No premature coronary artery disease or cancer. Social History: She does not smoke or drink. Does not use any drugs. Review of Systems: All systems reviewed and they were negative except what mentioned in HPI. Physical Examination: Vital Signs: Reviewed. Head and Neck: Pupils are equal, reactive to light. Intact eye movements. No JVD. No cervical lym phadenopathy. Neck is supple. Thyroid is not enlarged. Lungs: Clear to auscultation bilaterally. No rhonchi, wheezing, or crackles. No accessory muscle u se. Heart: Regular rate and rhythm. No extra sounds. Abdomen: Soft, nontender. Bowel sounds positive. No organomegaly. No masses or hernia. No rigidi ty or rebound. Extremities: No edema, clubbing, or cyanosis. Intact pulses. Skin: No rash. Neurologic: Alert, awake, oriented x3. No acute focal deficits appreciated. Lymph Nodes: No cervical or axillary lymphadenopathy. Investigations: Labs were reviewed. Assessment And Recommendations: 1.Questionable junctional rhythm. I have not seen evidence of it. She is in sinus rhythm on teleme try. Obtain an echocardiogram tomorrow and further assess accordingly. 2.Questionable meningitis, on wide-spectrum antibiotics to cover Gram negatives and Gram positives p ending cultures. SR/MODL Voice ID: [id number] Report ID: [id number]
[2023-05-07] MEDS: ACYCLOVIR INJ 700 MG in NA CHLORIDE 0.9% 100 ML IVPB SCH ×3 (00:39→17:28)
[2023-05-07] MEDS: dexAMETHasone 4 MG/ML VIAL IV SCH ×3 (00:40→17:28)
[2023-05-07] MEDS ORDERED: MELATONIN 5 MG TABLET PO PRN (03:26)
[2023-05-07] MEDS: CEFTRIAXONE 2,000 MG in NA CHLORIDE 0.9% 100 ML IV SCH (06:37)
[2023-05-07 09:04] LABS: Rheumatoid Factor NEG (NEG)
--- NOTE | 2023-05-07 09:48 | P.CNS ---
Date of Consult: 05/07/23 Reason for Consult: possible meningitis Chief Complaint: Suspected meningitis, encephalitis, hyponatremiasevere History of Present Illness: Patient is a 32-year-old female with a past medical history of hypertension and migraines who presented to the emergency department with complaints of persistent headache, neck pain and photophobia. Lumbar puncture performed on 05/04. Infectious disease consulted for suspected meningitis. Allergies No Known Allergies Allergy (Verified 05/04/23 22:39) Home medications list reviewed: Yes Home Medications: Montelukast [Singulair*] 1 tab PO BID* 05/04/23 Propranolol [Inderal*] 1 tab PO BID 05/04/23 Amlodipine Besylate 1 tab PO DAILY 05/06/23 - Social History Alcohol use: No CD- Drugs: No Caffeine use: Yes Place of Residence: Home Review of Systems Unremarkable Physical Examination Temp Pulse Resp BP Pulse Ox 98.0 F 62 16 173/107 H 98 05/07/23 08:00 05/07/23 08:00 05/07/23 08:00 05/07/23 08:00 05/07/23 08:00 General: Alert, In no apparent distress, Oriented x3 HEENT: Atraumatic, Normocephalic, PERRLA, Mucous membr. moist/pink Neck: Supple, JVD not distended Respiratory: Clear to auscultation bilaterally, Normal air movement Cardiovascular: No edema, Normal pulses, Regular rate/rhythm Gastrointestinal: Normal bowel sounds, Soft and benign, Non-distended Musculoskeletal: No clubbing, No swelling Integumentary: No rashes, No breakdown Neurological: Normal gait, Normal speech, Normal strength at 5/5 x4 extr, Sensation intact Laboratory data reviewed Microbiology data reviewed Imagings Data: Reviewed Conclusions/Impression: Problem list Viral Meningitis Hypertension Asthma Hyponatremia Viral Meningitis -Cerebral spinal fluid culture 05/04: No growth to date -Blood cultures 05/04: No growth to date -Urine culture 05/05: No growth to date -Leukocytosis elevated WBC 15.7 -Tmax 103 F on 05/04. Afebrile 24 hours. -Currently on ceftriaxone (05/05-) and acyclovir started (05/04-) -Also on dexamethasone 4 mg IV Q8H (started 05/05) -Cerebral spinal fluid 05/04: Colorless, clear. WBC 60. RBC 1950. Neutrophils 26. Lymphocytes 68. - CSF Glucose 84 - CSF total protein 75 - Denies any headache, neck pain/stiffness, photophobia, nausea or vomiting. Recommendations - Continue Acyclovir x 7 days (05/04-05/11). Switch to PO. - Discontinue Vancomycin and Rocephin - Discontinue decadron - Maintain adequate hydration and nutrition Plan of care discussed with patient and her mother at bedside. Case discussed with Sandra Stephens
[2023-05-07] MEDS: VANCOMYCIN 1.5 GM in NA CHLORIDE 0.9% 500 ML IVPB SCH (10:25)
[2023-05-07] MEDS: INSULIN -REGULAR HUMAN 50 UNIT/0.5 ML ML SQ SCH ×4 (10:25→21:20)
[2023-05-07] MEDS: ENOXAPARIN 40 MG/0.4 ML SQ SCH (10:26)
[2023-05-07] MEDS: VITAMIN D 5,000 UNIT CAP PO SCH (10:26)
--- NOTE | 2023-05-07 13:09 | P.PN ---
Subjective Date of Service: 05/07/23 Chief Complaint: Suspected meningitis, encephalitis, hyponatremiasevere No acute events overnight. She reports that her symptoms have completely resolved. She denies any chest pain, palpitations, headaches, neck stiffness, photophobia, nausea, or vomiting. Review of Systems 10-point ROS is otherwise unremarkable Neurological: Other Physical Examination - Vital Signs Temperature: 97.9 F Blood Pressure: 150/92 Pulse: 63 Respirations: 16 Pulse Ox (%): 98 - Physical Exam General: Alert, In no apparent distress, Oriented x3 HEENT: Atraumatic, Mucous membr. moist/pink, Sclerae nonicteric Neck: JVD not distended Respiratory: Clear to auscultation bilaterally Cardiovascular: No edema, Regular rate/rhythm Gastrointestinal: Normal bowel sounds, Soft and benign, Non-distended, No tenderness, No rebound, No guarding Musculoskeletal: No clubbing Integumentary: No rashes Neurological: Normal speech, Normal strength at 5/5 x4 extr, Sensation intact, Cranial nerves 3-12 intact, Normal affect - Studies Microbiology Data (last 24 hrs): 05/04/23 16:01 Cerebral Spinal Fluid Gram Stain - Final 05/04/23 16:01 Cerebral Spinal Fluid Culture & Sensitivity - Final No growth. Assessment And Plan - Plan # Possible Viral Meningitis - Her symptoms have completely resolved - CSF studies: glucose 84, protein 75 - Consulted Infectious Diseases and Neurology and spoke with FLORES Vuong and Dr. Fulton, respectively - recommendations appreciated - Both services believe her symptoms to have been secondary to viral meningitis rather than bacterial meningitis - CRP was elevated at 129 - autoimmune evaluation is pending - Recommended discontinuing IV antibiotics and steroids - Recommended 7 day course of acyclovir, today is day 4 of 7 # Hyponatremia - improved - Suspect hypovolemic in the setting of vomiting. - Nephrology consulted - recommendations appreciated # Question of Junctional Rhythm - Cardiology consulted and was evaluated by Dr. Vidal - recommendations appreciated - Transthoracic echocardiogram ordered per Cardiology recs # Microscopic Hematuria - Noted on urinalysis - Thought to be secondary to irregular menses. She plans to follow-up with [facility] as an outpatient William Wyatt M.D.
[2023-05-07 15:15] VITALS: O2SAT 98
--- NOTE | 2023-05-07 22:41 | P.PN ---
Date of Service: 05/07/23 Vital Signs Temp Pulse Resp BP Pulse Ox 97.9 F 71 18 170/89 H 97 05/07/23 20:00 05/07/23 20:00 05/07/23 20:00 05/07/23 20:00 05/07/23 20:00 Medications Acetaminophen (Acetaminophen 325 Mg Tablet) 650 mg PO Q4HP PRN PRN Reason: Pain scale 2-4 (Mild) Last Admin: 05/05/23 20:41 Dose: 650 mg Acetaminophen (Acetaminophen 325 Mg Tablet) 325 mg PO Q6H PRN PRN Reason: Pain scale 5-7 (Moderate) Last Admin: 05/04/23 23:36 Dose: 325 mg Hydrocodone Bitart/Acetaminophen (Hydrocodone/Apap 7.5/325 Mg Tab) 1 tab PO Q6H PRN PRN Reason: Pain scale 5-7 (Moderate) Last Admin: 05/06/23 19:55 Dose: 1 tab Cholecalciferol (Vitamin D 5,000 Unit Cap) 5,000 unit PO DAILY [facility] Last Admin: 05/07/23 10:26 Dose: 5,000 unit Dexamethasone (Dexamethasone 4 Mg/Ml Vial) 4 mg IV Q8HR [facility] Last Admin: 05/07/23 17:28 Dose: 4 mg Enoxaparin Sodium (Enoxaparin 40 Mg/0.4 Ml) 40 mg SQ DAILY [facility] Last Admin: 05/07/23 10:26 Dose: 40 mg Glucagon (Glucagon 1 Mg/Vial) 1 mg IM 1X PRN PRN Reason: HYPOGLYCEMIA Acyclovir Sodium 700 mg/ (Sodium Chloride) 114 mls @ 114 mls/hr IVPB Q8HR [facility] Last Admin: 05/07/23 17:28 Dose: 114 mls Dextrose (Dextrose 10% Water Iv Soln.) 125 mls @ 0 mls/hr IV PRN PRN; Protocol PRN Reason: HYPOGLYCEMIA Insulin Human Regular (Insulin -Regular Human 50 Unit/0.5 Ml Ml) 0 unit SQ ACHS [facility]; Protocol Last Admin: 05/07/23 21:20 Dose: 9 unit Melatonin (Melatonin 5 Mg Tablet) 10 mg PO BEDTIME PRN PRN PRN Reason: INSOMNIA Ondansetron HCl (Ondansetron 4 Mg/2 Ml Vial) 4 mg IV Q6HP PRN PRN Reason: NAUSEA / VOMITING Sodium Chloride (Flush Normal Saline 10 Ml) 10 ml IV BID [facility] Last Admin: 05/07/23 21:20 Dose: 10 ml Microbiology Results 05/04/23 16:01 Cerebral Spinal Fluid Gram Stain - Final 05/04/23 16:01 Cerebral Spinal Fluid Culture & Sensitivity - Final No growth. Assessment/ Plan: Nephrology No dyspnea No chest pain No acute events overnight Vitals, medications, blood work and imaging reviewed in the chart. NAD. NCAT. MMM. Neck supple. Normal respiratory effort. RRR. Abd ND. No C/C. LE Edema none. No rash. AAO. Normal speech. Hyponatremia -Encourage nutrition Hypokalemia -Replete as ordered HTN -Consider Lisinopril DM II with Hyperglycemia -RISS Hospitalist note reviewed
--- NOTE | 2023-05-07 23:13 | CON ---
Reason For Consultation: Consultation called because of suspected meningitis, encephalitis. History Of Present Illness: Ms. Floyd is a 32-year-old, right-handed, patient, who bega n having symptoms a week ago on Sunday. Symptoms included headache, which she does have migraines, w hich are rare, perhaps 2-3 times a year, but had severe pain and malaise, neck pain as well along wit h nausea and vomiting multiple times. Symptoms did fluctuate, but progressed over several days. She was seen at the hospital multiple times, went back to home and then came back with worsening symptom s such as neck stiffness, pain, and aches throughout the body and she was evaluated with suspected me ningitis. Her blood work on 05/04/2023 showed elevated white count of 16.4, neutrophils 75%. Hemogl obin and hematocrit were normal. Chemistries did show significant hyponatremia that was at worst 119 , possibly related to continuous vomiting. She had a low chloride as well and elevated glucose from her diabetes mellitus. Her urinalysis did show extremely turbid urine, 3+ glucose. Nitrite was nega tive, esterase negative, bacteria none seen and she did have a lumbar puncture, which showed red bloo d cells around 4000, consistent with a traumatic tap with white blood cells 53. It was colorless and clear. Glucose was 84, consistent with diabetes mellitus. Total protein elevated at 75, again cons istent with diabetes mellitus. She was retreated with vancomycin, Rocephin, had screen done for some of the viral meningitis. HIV was nonreactive. She did receive medications for pain, which did incl ude Tylenol, Zenda, and she was treated for viral meningitis with acyclovir, potentially herpes menin gitis. She was seen by the infectious disease service with the conclusion that her infection is not likely bacterial, most likely viral meningitis. Over the weekend, she did improve significantly. Malone s not had additional nausea and vomiting. Able to hold food down and to drink without being is havin g again nausea. Her temperature has remained afebrile while hospitalized. When she first came, she had a T-max of a 103, but since that is 25th, today is 28th, since then she has been afebrile. Past Medical History: As noted above including diabetes mellitus. Allergies: NO KNOWN DRUG ALLERGIES. Current Medications: Tylenol 650 every 4 hours as needed, acyclovir. She did receive the treatment from 05/04 and has completed. Vitamin D 5000 units daily. She did receive Decadron as well, complet ed Lovenox for DVT prophylaxis 40 mg, Zenda 5/325 every 6 hours as needed, melatonin 10 mg at bedtime , Zofran 4 mg every 6 hours as needed. Prior to coming to the hospital, her home medications for hyp ertension were amlodipine and propranolol for headache in addition to montelukast or Singulair for al lergies. Family History: Positive for migraine headaches. Social History: No alcohol, tobacco, or IV drug. Patient denies any sick contacts. She has a sister and parents. Denies any are ill. She does not h ave children. Review of Systems: As noted, she has neck pain. She had fevers and chills, nausea, vomiting, headache, and myalgias and malaise. Otherwise, negative on systems review. Physical Examination: Vital Signs: Blood pressure 168/83, pulse 73, respiratory rate 16, temperature 97.7, oxygen saturati on 98%. General: Ms. Floyd is resting comfortably in bed. She is in no acute distress. HEENT: She is normocephalic, atraumatic. Sclerae anicteric. Oropharynx is pink and moist. Neck: Supple. Chest: Clear. Heart: Regular. Extremities: Show no clubbing, cyanosis, or edema. Neurological: She is alert, oriented to person, place, time, and situation. Follows commands approp riately. No cranial nerve deficits. No focal or motor coordination, sensory, gait, or reflex defici ts. Assessment: Ms. Floyd is a 32-year-old patient who likely had viral meningitis from which she is improving well. No evidence of bacterial meningitis. In addition, no evidence at this point of ence phalitis, but there is still a possibility that she may have had an autoimmune condition that is not resolving. She does have a history of diabetes mellitus, hypertension, and likely migraine. Plan: 1.She may be discharged home with CGRP receptor antagonists for migraine. In addition, she is encou raged to hydrate, 8 glasses of water daily. 2.If there is worsening confusion, disorientation, she may need evaluation for autoimmune encephalit is, although that is highly unlikely at this point. 3.After discharge, she may follow up with Dr. Fulton's clinic within the month. DONALD/GERBER Voice ID: [id number] Report ID: [id number]
[2023-05-08] MEDS: dexAMETHasone 4 MG/ML VIAL IV SCH ×2 (02:03→07:56)
[2023-05-08] MEDS: ACYCLOVIR INJ 700 MG in NA CHLORIDE 0.9% 100 ML IVPB SCH ×2 (02:04→09:18)
[2023-05-08 07:26] LABS: Hematocrit 35.4 % (36.0-45.0); Lymphocytes % 17.1 % (15.3-44.8); MCV 86.4 fL (80-100); MPV 9.5 fL (7.6-11.3); Platelets 314 thou/uL (152-406); RBC Red Blood Cell Count 4.09 M/uL (3.86-4.86)
[2023-05-08] MEDS ORDERED: NA CHLORIDE 0.9% 0 ML ONE (07:55)
[2023-05-08] MEDS: VITAMIN D 5,000 UNIT CAP PO SCH (07:56)
[2023-05-08] MEDS: ENOXAPARIN 40 MG/0.4 ML SQ SCH (07:56)
[2023-05-08] MEDS: INSULIN -REGULAR HUMAN 50 UNIT/0.5 ML ML SQ SCH (07:56)
--- NOTE | 2023-05-08 08:21 | P.DS ---
Admission Date: 05/04/23 Discharge Date: 05/08/23 Disposition: ROUTINE DISCHARGE Discharge Condition: GOOD Reason for Admission: Suspected meningitis, encephalitis, hyponatremiasevere Consultations: 1. Nephrology 2. Neurology 3. Infectious Diseases 4. Cardiology Hospital Course: DIAGNOSES: # Possible Viral Meningitis # Hyperglycemia in Type II Diabetes Mellitus # Hyponatremia - improved # Question of Junctional Rhythm # Microscopic Hematuria HOSPITAL COURSE: Ms. Aliya Floyd is a 32 year old female with a past medical history significant for migraine headaches and type II diabetes mellitus who was admitted to the [facility] on 05/04/2023 for headache, nausea, vomiting, and photophobia. She was admitted to the Medicine service. Upon further evaluation, there was concern that she had developed meningitis. She was admitted with isolation precautions and started on empiric antibiotics. A lumbar puncture was performed, which revealed an elevated CSF glucose and protein. Infectious Diseases and Neurology were consulted and she was evaluated by Dr. Merchant and Dr. Fulton, respectively. They felt that her symptoms were due to viral meningitis. Empiric antibiotics and steroids were discontinued and her symptoms continued to improve. Per their recommendations, she was discharged with an additional 3 days of acyclovir to complete a 7-day course of antiviral therapy. This morning, her symptoms had completely resolved and she requested to be discharged home. Of note, during her hospitalization, she was found to be severely hyponatremic. This was thought to be due to hypovolemia from vomiting. She was treated with IV fluids, with improvement in her sodium levels. It was also thought that she may have had a junctional rhythm. Cardiology was consulted and she was evaluated by Dr. Vidal. He has cleared her from a cardiac standpoint. On 05/08/2023, she was seen on morning rounds and deemed medically stable for discharge. She was discharged with instructions to schedule follow-up appointments with her PCP, with Neurology (Dr. Fulton), with Nephrology (Dr. Prieto) with Cardiology (Dr. Vidal), and with [facility] (Dr. Woodall). She was provided a prescription for acyclovir. She and her mother were given the opportunity to ask questions and reported no further questions. Furthermore, all questions were answered to the best of my ability. A copy of this discharge summary will be sent to the above providers to facilitate continuity of care. Today, I personally spent 25 minutes on her case, of which greater than 50% of the time was spent in patient education, counseling, and coordination of care as described above. - Physical Exam General: Alert, In no apparent distress, Oriented x3 HEENT: Atraumatic, Mucous membr. moist/pink, Sclerae nonicteric Respiratory: Clear to auscultation bilaterally Cardiovascular: No edema, Regular rate/rhythm Gastrointestinal: Normal bowel sounds, Soft, Non-distended, No tenderness Musculoskeletal: No clubbing Integumentary: No rashes Neurological: Normal speech, Normal strength at 5/5 x4 extr, Sensation intact, Cranial nerves 3-12 intact, Normal affect Vital Signs/Physical Exam: Temp Pulse Resp BP Pulse Ox 97.1 F 53 18 150/79 H 98 05/08/23 04:00 05/08/23 04:00 05/08/23 04:00 05/08/23 04:00 05/08/23 04:00 Laboratory Data at Discharge: WBC 11.50 thou/uL (4.3-10.9) H 05/08/23 07:03 Hgb 11.8 g/dL (12.0-15.0) L 05/08/23 07:03 Hct 35.4 % (36.0-45.0) L 05/08/23 07:03 Plt Count 314 thou/uL (152-406) 05/08/23 07:03 Sodium 134 mEq/L (136-145) L 05/08/23 07:03 Potassium 4.0 mEq/L (3.5-5.1) 05/08/23 07:03 BUN 10 mg/dL (7-18) 05/08/23 07:03 Creatinine 0.59 mg/dL (0.55-1.02) 05/08/23 07:03 Glucose 284 mg/dL (74-106) H 05/08/23 07:03 Phosphorus 2.2 mg/dL (2.5-4.9) L 05/05/23 05:25 Magnesium 2.2 mg/dL (1.6-2.4) 05/05/23 05:25 Total Bilirubin 0.8 mg/dL (0.2-1.0) 05/05/23 05:25 AST 14 U/L (15-37) L 05/05/23 05:25 ALT 34 U/L (13-56) 05/05/23 05:25 Alkaline Phosphatase 34 U/L (45-117) L 05/05/23 05:25 Home Medications: Montelukast [Singulair*] 1 tab PO BID* 05/04/23 Propranolol [Inderal*] 1 tab PO BID 05/04/23 Amlodipine Besylate 1 tab PO DAILY 05/06/23 Acyclovir Tab [Zovirax*] 400 mg PO Q8H 3 Days #9 tab 05/08/23 New Medications: Acyclovir Tab [Zovirax*] 400 mg PO Q8H 3 Days #9 tab Physician Discharge Instructions: 1. Please call and schedule a follow-up appointment with your PCP in 3-5 days - Your blood work showed anemia. Please discuss with your PCP for further evaluation - As we discussed, you tested positive for diabetes. Please discuss treatment options with your PCP - It is important that you schedule yearly dilated eye exams, yearly kidney checks (urine microalbumin), and you check the bottom of your feet for ulcers monthly 2. Please call and schedule a follow-up appointment with Neurology (Dr. Fulton) in 5-7 days 3. Please call and schedule a follow-up appointment with Nephrology (Dr. Prieto) in 5-7 days - Please follow-up the results of your autoimmune studies with Dr. Prieto in 5- 7 days 4. Please call and schedule a follow-up appointment with [facility] (Dr. Woodall) - Your urine sample contained blood in it. It is important to exclude cancer as the cause of bleeding. Please discuss blood in urine/abnormal menstrual cycles with [facility]. 5. Please call and schedule a follow-up appointment with Cardiology (Dr. Vidal) in 5-7 days Diet: ADA Activity: Ad josé miguel Followup: Yohannes Prieto MD [ACTIVE - CAN ADMIT] - Lisset Woodall MD [ACTIVE - CAN ADMIT] - NONE,NONE [Primary Care Provider] - Nawaf Vidal MD [ACTIVE - CAN ADMIT] - Daniel Fulton MD [ASSOCIATE-ACTIVE - CAN ADMIT] - Time spent managing pt's care (in minutes): 25
[2023-05-08 09:43] VITALS: BP 189/111; TEMP 97.8
--- NOTE | 2023-05-08 16:32 | EKG ---
Test Date: 2023-05-05 Test Time: 02:14:46 [employer] Manifest Clerk: MP MEASUREMENT RESULTS: Intervals: Rate: 55 OR: 136 QRSD: 76 QT: 476 QTc: 455 [place]: P: 38 OR: 136 QRS: 74 T: 41 INTERPRETIVE STATEMENTS: Sinus bradycardia with sinus arrhythmia Otherwise normal ECG No previous ECG available for comparison Electronically Signed On 05-08-23 16:27:52 CDT by Nawaf Vidal
--- NOTE | 2023-05-08 21:28 | P.PN ---
Date of Service: 05/08/23 Vital Signs Temp Pulse Resp BP Pulse Ox 97.8 F 69 16 189/111 H 99 05/08/23 08:00 05/08/23 08:00 05/08/23 08:00 05/08/23 08:00 05/08/23 08:00 Microbiology Results 05/04/23 16:01 Cerebral Spinal Fluid Gram Stain - Final 05/04/23 16:01 Cerebral Spinal Fluid Culture & Sensitivity - Final No growth. Assessment/ Plan: Nephrology No dyspnea No chest pain Reports heartburn No acute events overnight Vitals, medications, blood work and imaging reviewed in the chart. NAD. NCAT. MMM. Neck supple. Normal respiratory effort. RRR. Abd ND. No C/C. LE Edema none. No rash. AAO. Normal speech. Hyponatremia -Encourage nutrition Hypokalemia -Replete as ordered HTN -Consider Lisinopril DM II with Hyperglycemia -RISS Heartburn -Pepcid prn Hospitalist note reviewed
--- NOTE | 2023-05-09 07:07 | ECHO ---
HEIGHT: 5 ft 4 in WEIGHT: 195 lb 0 oz DATE OF STUDY: 05/08/[address]: William Wyatt MD 2-DIMENSIONAL: YES M.MODE: YES DOPPLER: YES COLOR FLOW: YES TDS: PORTABLE: YES DEFINITY: BUBBLE STUDY: DIAGNOSIS: QUESTIONABLE JUNCTION RHYTHM CARDIAC HISTORY: CATHERIZATION: NO SURGERY: NO PROSTHETIC VALVE: NO PACEMAKER: NO MEASUREMENTS (cm) DIASTOLIC (NORMALS) SYSTOLIC (NORMALS) IVSd 1.0 (0.6-1.2) LA Diam 2.7 (1.9-4.0) LVEF 66% LVIDd 4.0 (3.5-5.7) LVIDs 2.6 (2.0-3.5) %FS 36% LVPWd 1.0 (0.6-1.2) Ao Diam 2.1 (2.0-3.7) 2 DIMENSIONAL ASSESSMENT: RIGHT ATRIUM: NORMAL LEFT ATRIUM: NORMAL RIGHT VENTRICLE: NORMAL LEFT VENTRICLE: NORMAL TRICUSPID VALVE: NORMAL MITRAL VALVE: NORMAL PULMONIC VALVE: NORMAL AORTIC VALVE: NORMAL PERICARDIAL EFFUSION: NONE AORTIC ROOT: NORMAL LEFT VENTRICULAR WALL MOTION: NORMAL DOPPLER/COLOR FLOW: NORMAL COMMENTS: 1. NORMAL LEFT VENTRICULAR EJECTION FRACTION 60-65% 2. NORMAL WALL MOTION 3. NORMAL DIASTOLIC FUNCTION 4. NORMAL TREATMENT PLANT MECHANIC: KLEBER CHAVEZ
== END 2023-05-08 11:06 | disposition home or self-care (01) | DRG 75 ==
LOC: ER 14:15 → ERHOLD 17:44 → 4TH 20:00
PROVIDERS: ADMIT Internal Medicine Nephrology; ATTEND Internal Medicine
PROC: 009U3ZX Drainage of Spinal Canal, Percutaneous Approach, Diagnostic (ICD-10-PCS; principal; 2023-05-04)
DX: A87.9 Viral meningitis, unspecified (principal); E87.1 Hypo-osmolality and hyponatremia; I10 Essential (primary) hypertension; E87.6 Hypokalemia; E86.1 Hypovolemia; E11.65 Type 2 diabetes mellitus with hyperglycemia; H53.149 Visual discomfort, unspecified; J45.909 Unspecified asthma, uncomplicated; G43.909 Migraine, unspecified, not intractable, without status migrainosus; D72.829 Elevated white blood cell count, unspecified; R12 Heartburn; R31.29 Other microscopic hematuria; Z79.899 Other long term (current) drug therapy
CPT/HCPCS: 36415; 62270; 80048; 80053; 80202; 81001; 82533; 82570; 82945; 82947; 83036; 83605; 83735; 83935; 84100; 84157; 84295; 84300; 84443; 84703; 85025; 86038; 86140; 86160; 86225; 86430; 87040; 87070; 87086; 87088; 87389; 89050; 93005; 93306; 99285; J0133; J0696; J1100; J1450; J1650; J1815; J7030; J7040; J7050